=== PATIENT | female | born 1975 | race Asian ===

== ENCOUNTER 2018-07-13 13:15 | Outpatient (REF) | payer BC, SELFPAY ==
--- NOTE | 2018-07-13 11:30 | PAPFT_PTH ---
PATIENT: Liz Lainer LOC: [facility] U#:[id number] AGE/SX: 42/F ROOM: RE07/13/[address]: ADALBERTO Dwyer : 1975 BED: DIS: 07/13/2018 SPEC #: [id number] RECD: 07/13/18 18:00 STATUS: ZOË REQ #: [id number] ALLY: 07/13/18 11:[address]: Tanisha Smalls DEPT: [facility] Cytology RECD BY: Carole Tinoco ENTERED: 07/13/18 18:00 SP TYPE: PAPFT OTHR DR: Carin Reyes Tissues: 1 - CX/ENDOCX FOR PAP SMEARS Procedures: PAP THIN PREP/UVM Screening Comments: [id number] (CREDIT HPV PER ZEB POLLARD @ [facility]) (RESUBMITTED AT NO CHARGE - SEE [id number])
== END 2018-07-13 13:35 ==
LOC: LBN 13:15
PROVIDERS: PCP Nurse Practitioner Family; Visit Provider Nurse Practitioner Family
DX: Z12.4 Encounter for screening for malignant neoplasm of cervix (principal); Z11.51 Encounter for screening for human papillomavirus (HPV)
CPT/HCPCS: 88142; 87624

== ENCOUNTER 2018-07-27 14:28 | Outpatient (REF) | payer BC, SELFPAY ==
--- NOTE | 2018-07-27 13:00 | PAPFT_PTH ---
PATIENT: Liz Lanier LOC: [facility] U#:[id number] AGE/SX: 42/F ROOM: RE07/27/[address]: ADALBERTO Dwyer : 1975 BED: DIS: 07/27/2018 SPEC #: [id number] RECD: 07/27/18 18:07 STATUS: ZOË JUAREZ #: [id number] ALLY: 07/27/18 13:[address]: Tanisha Smalls DEPT: [facility] Cytology RECD BY: Carole Tinoco ENTERED: 07/27/18 18:08 SP TYPE: PAPFT OTHR DR: Carin Reyes Tissues: 1 - CX/ENDOCX FOR PAP SMEARS Procedures: HPV DNA PROBE Comments: (HPV ONLY!) (SEE [id number] REPORT - [facility]#: [id number]) (HPV TESTING DONE AT NO CHARGE PER ZEB POLLARD @ [facility])
== END 2018-07-27 14:48 ==
LOC: LBN 14:28
PROVIDERS: PCP Nurse Practitioner Family; Visit Provider Nurse Practitioner Family
DX: Z12.4 Encounter for screening for malignant neoplasm of cervix (principal); Z11.51 Encounter for screening for human papillomavirus (HPV)
CPT/HCPCS: 88142; 87624

== ENCOUNTER 2018-07-29 01:06 | Outpatient (CLI) | payer BC, SELFPAY ==
--- NOTE | 2018-07-29 12:00 | DI.MAMMO_ITS ---
SYMPTOMS/DIAGNOSIS: SCREENING, Z12.31 BILATERAL SCREENING MAMMOGRAM: Comparison is made with 2015. The breasts are composed of heterogeneously dense fibroglandular tissue, breast density category C. No suspicious masses or suspicious microcalcifications are seen. There has been no significant change. IMPRESSION: Category 1, negative mammogram. Routine screening is recommended. [facility] ASSESSMENT OF FINDINGS: Negative. Category 1. Patient will receive a letter notifying them of these results. Bi-RADS category C. The breasts are heterogeneously dense, which may obscure small masses.
== END 2018-07-29 01:26 ==
PROVIDERS: PCP Nurse Practitioner Family; Visit Provider Nurse Practitioner Family
DX: Z12.31 Encounter for screening mammogram for malignant neoplasm of breast (principal)
CPT/HCPCS: 77063; 77067

== ENCOUNTER 2019-02-12 02:26 | Inpatient (IN) | payer BC, SELFPAY ==
[2019-02-12] VITALS (14 sets, daily range): BP systolic 92–153; BP diastolic 56–82; PULSE 65–102; RESP 16–22; TEMP 36.5–37.1; O2SAT 96–100
--- NOTE | 2019-02-12 02:35 | W.ED.GENAD ---
Discharge Plan Disposition Patient Disposition: [facility] INPATIENT Condition: Stable Discharge Details Chief Complaint: Abd Prob Clinical Impression: Acute cholecystitis Primary Care Provider: Carin Reyes ED Provider: Valdez Jara Home Meds and New Rx's Prescriptions: No Action ktlfzzplgper-Qr-yzrr-minerals [Women's One Daily] 1 EACH tablet 1 ea PO PRN RF: 0 cholecalciferol (vitamin D3) 5,000 UNIT tablet 5,000 unit PO PRN RF: 0 omega-3 fatty acids [Fish Oil] 500 MG capsule 500 mg PO RF: 0 Medical Decision Making 43 yo female who denies chronic medical problems or prior surgeries, denies smoking, drug use or alcohol use, comes in with acute onset epigastric/ruq pain starting around 1130pm last night. She states she has had intermittent abdominal pain for years, can't think of anything that makes it better or worse. She states this pain woke her up from sleep. She has pain with palpation to the ruq and epigastric, no lower abdominal pain. Given concern for cholecystitis, pancreatitis among other pathology will obtain lab work and ct to further evaluate labs show wbc of 12, otherwise no acute findings. CT shows likely cholecystitis. Will consult with general surgery. Pt still has pain with palpation but much improved with meds. Dr. Meng from general surgery agrees with admission and will place orders Differential Diagnosis pancreatitis, cholecystitis, pneumoperitoneum Imaging Data Radiologic Study: Attestation: I personally reviewed and interpreted this imaging study as follows: Imaging: CT Scan Radiologist's impression: IMPRESSION: Gallstones with pericholecystic stranding/fluid in possible mild gallbladder wall thickening, suspicious for acute cholecystitis. Lab Data Lab results reviewed: Yes I reviewed the patient's lab results. ECG Data Attestation: I personally reviewed and interpreted this ECG (s) as follows: Prior ECG tracings: not available for review Interpretation: sinus rhythm, rate of 87, pr 168, qtc 457, no acute st t wave ischemic changes HPI General Mode of arrival: ambulatory. Date/Time Provider Initiated Documentation: 02/12/19 02:30. Limitations to Documentation: no limitations. Information obtained by: patient. History of Present Illness 43 year old F presents to the emergency department with the chief complaint of abdominal pain, described as severe, Quality is described as stabbing and aching, and is localized to the abdomen. Patient reports no radiation. Patient started experiencing this hour(s) (3) and it has been constant. No relieving factors improve symptom(s), No exacerbating factors reported . Patient did receive the following treatments prior to arrival, none Related Data Home Medications Medication Instructions Recorded Confirmed cholecalciferol (vitamin D3) 5,000 unit PO PRN 03/07/13 07/27/18 svmldifllxaf-Iz-bzcf-minerals 1 ea PO PRN 03/07/13 07/27/18 [Women's One Daily] omega-3 fatty acids [Fish Oil] 500 mg PO 04/08/16 07/27/18 Allergies Allergy/AdvReac Type Severity Reaction Status Date / Time No Known Allergies Allergy Verified 02/12/19 03:07 Review of Systems Review of Systems All systems reviewed & are unremarkable except as noted in HPI and below Constitutional Denies chills, Denies fever(s) and Denies weakness ENT Denies change in voice Cardiovascular Denies chest pain and Denies dyspnea Respiratory Denies cough and Denies dyspnea Gastrointestinal Denies abdominal pain, Denies nausea and Denies vomiting Integumentary/Breasts Denies rash Neurologic Denies weakness Endocrine Denies heat intolerance PFS Surgical History Biopsy of breast Social History Smoking/Tobacco Use Status: Never Alcohol Intake: current Alcohol Intake frequency: other Drug use: Never Substance use type: does not use Seatbelt use: always Do you feel safe at home: Yes Do you feel safe in your relationship?: Yes Female Reproductive History Menstrual control method: condoms History History 3 Para Hx # Term Pregnancies 2 Multiple births Hx # Pregnancies Ectopic pregnancies AB induced Hx Number of Living Children AB spontaneous Exam Const General: no acute distress Orientation: alert HENMT Head: normal to inspection Ears: external ears normal General nose exam: external nose normal Mouth: moist mucous membranes Eyes General: appearance normal, both eyes and all related structures Neck Neck: normal visual inspection Resp Effort & Inspection: normal respiratory effort and able to speak in complete sentences Cardio Rate: regular rate GI Palpation: soft Skin General skin exam: no rashes or lesions noted Neuro General: alert and oriented x3 Extrem General: normal to inspection Psych Mental Status: mental status grossly normal
[2019-02-12] MEDS: Normal Saline Flush 10 ML SYR IVP (02:40)
[2019-02-12] MEDS: Normal Saline 1,000 ML 1000 ML IV (02:40)
[2019-02-12] MEDS: Ondansetron 4 MG/2 ML VIAL IVP (02:42)
[2019-02-12] MEDS: Ketorolac 15 MG/ML VIAL IVP (02:45)
[2019-02-12 03:00] LABS: Abs Immature Grans 0.03 k/cumm (0.0-0.09); Absolute Basophil Count 0.04 k/cumm (0.0-0.2); Absolute Eosinophil Count 0.17 k/cumm (0.0-0.7); Absolute Monocyte Count 0.65 k/cumm (0.11-0.7); Basophils % 0.3; Eosinophils % 1.4; HCT 38.6 % (36.0-46.0); HGB 12.7 g/dL (12.0-15.5); Immature Grans % 0.2; Lymphocytes % 19.7; Mean Corp. HGB Concentration 32.9 g/dL (32.0-36.0); Mean Corpuscular Volume 94.1 fL (80-95); Mean Platelet Volume 11.6 fL (8.0-11.0); Monocytes % 5.3; Neutrophils % 73.1; Platelet Count 218 x1000/uL (130-400); RBC Distribution Width 12.1 % (11.7-14.6); White Blood Cell Count 12.17 k/cumm (4.4-10.8)
[2019-02-12] MEDS: Omnipaque 350 MG/ML 100 ML BTL IJ (03:10)
[2019-02-12 03:15] LABS: ALT 11 U/L (12-78); AST 10 U/L (15-37); Albumin 3.9 g/dL (3.4-5.0); Alkaline Phosphatase 34 U/L (46-116); Anion Gap 10.5 mmol/L (3-11); BUN 18 mg/dL (7-18); Bilirubin, Total 0.5 mg/dL (0.2-1.0); CO2 25.5 mmol/L (21.0-32.0); CREATININE 0.69 mg/dL (0.55-1.02); Calcium 8.8 mg/dL (8.5-10.1); Chloride 101 mmol/L (98-107); Glucose 176 mg/dL (70-100); Lipase 163 U/L (73-393); Magnesium 1.6 mg/dL (1.8-2.4); Potassium 3.4 mmol/L (3.5-5.1); Sodium 137 mmol/L (136-145); Total Protein 8.3 g/dL (6.4-8.2); Troponin I < 0.02 ng/mL (0.00-0.06)
--- NOTE | 2019-02-12 03:15 | DI.CT_ITS ---
SYMPTOM/DIAGNOSIS: UPPER ABD PAIN ABDOMEN AND PELVIC CT: No priors. CT scan of the abdomen and pelvis was performed following the uneventful administration of intravenous contrast material. Mild dependent atelectatic changes are seen in the lung bases. The liver is normal in size. No suspicious hepatic masses are seen. The portal and superior mesenteric veins are patent. There are stones seen within the gallbladder. There is a question of mild gallbladder wall thickening and pericholecystic fluid present. The findings raise the question of acute cholecystitis. No biliary ductal dilatation is seen. The pancreas, spleen and adrenal glands are unremarkable. The kidneys show normal and symmetric enhancement. No solid renal mass or obstruction is identified. The urinary bladder is intact. The reproductive organs are unremarkable. The bowel shows no evidence of obstruction or inflammation. There is a normal appendix present. There is a trace amount of free fluid in the pelvis in the cul-de-sac. This may be physiologic. No significant abdominal or pelvic adenopathy or pneumoperitoneum is present. The bones appear intact. IMPRESSION: Cholelithiasis, pericholecystic stranding and possible gallbladder wall thickening. The findings raise the question of acute cholecystitis. Sonographic follow up should be considered.
[2019-02-12 03:39] LABS: Prothrombin Time 10.4 sec (9.3-11.0)
[2019-02-12 03:50] LABS: PTT Activated 24.3 sec (21.0-31.4)
--- NOTE | 2019-02-12 04:16 | DI.VRAD_ITS ---
EXAM: CT Abdomen and Pelvis With Contrast EXAM DATE/TIME: 02/12/2019 3:11 AM CLINICAL HISTORY: 43 years old, female; Abdominal pain; Localized; Patient HX: HX gallstones, upper abd pain x24 hours TECHNIQUE: Imaging protocol: Axial computed tomography images of the abdomen and pelvis with intravenous contrast. Coronal and sagittal reformatted images were created and reviewed. Radiation optimization: All CT scans at this facility use at least one of these dose optimization techniques: automated exposure control; mA and/or kV adjustment per patient size (includes targeted exams where dose is matched to clinical indication); or iterative reconstruction. Contrast material: [id number]; Contrast volume: 70 ml; Contrast route: IV; COMPARISON: No relevant prior studies available. FINDINGS: ABDOMEN: Liver: Normal. No mass. Gallbladder and bile ducts: Gallstones with pericholecystic stranding/fluid in possible mild gallbladder wall thickening, suspicious for acute cholecystitis. Pancreas: Normal. No ductal dilation. Spleen: Normal. No splenomegaly. Adrenals: Normal. No mass. Kidneys and ureters: Normal. No hydronephrosis. Stomach and bowel: Colonic diverticula. Appendix: No evidence of appendicitis. PELVIS: Bladder: Unremarkable as visualized. Reproductive: Unremarkable as visualized. ABDOMEN and PELVIS: Intraperitoneal space: Normal. No free air. No significant fluid collection. Bones/joints: No acute fracture. No dislocation. Soft tissues: Unremarkable. Vasculature: Normal. No abdominal aortic aneurysm. Lymph nodes: Normal. No enlarged lymph nodes. IMPRESSION: Gallstones with pericholecystic stranding/fluid in possible mild gallbladder wall thickening, suspicious for acute cholecystitis. Dictated and Authenticated by: Valdez Quan MD. Ordering:CRISPIN Kellogg MD
--- NOTE | 2019-02-12 04:18 | NUR.NOTE ---
Nursing Note: patient resting, remains pain free.
--- NOTE | 2019-02-12 04:44 | W.PM.HP.N ---
Date of service: 02/12/19 Time of Service: 04:44 Assessment and Plan (1) Acute gallstone pancreatitis: Current visit: Yes Status: Acute pt prob passed GS last pm. very mild pancreatitis. also has low grade infection/cholecystitis. Pt really wants to eat and go home. cont on IV abx try cl liq today adn see how pt progresses. repeat labs in am: if pt feeling good and labs are improving, and she can eat w/out pain, than we will d/c on abx and I will see in office on and schedule for outpt sx. low fat/ no pork diet as outpt. If she is not improving- than Sx in am cont supportive care and close nursing obs. (2) Acute cholecystitis due to biliary calculus: Current visit: Yes Status: Acute as above (3) Acute cholecystitis with chronic cholecystitis: Current visit: Yes Status: Acute History of Present Illness Consults Consult date: 02/12/19 Requesting physician: Sunny Muse Narrative: pt came into ED last night c/o chest pain . She points to mid sternum where she said the pain was (currently has no pain). EKG and trop were neg. See results of CT scan. Pt does have a Hx of GS. They started when she was in third trimester of her last . Then she would get pain in her chest. She has not really had problems with the gallstones for the last 20 years. If she occasionally get pain she will take a Tylenol and they go away. Her last meal was pork spare ribs. Last night she started getting chest pain. It would not go away. And it became quite severe. And she came into the emergency department. She was nauseated but no vomiting. She did not have any changes in bowel/does not have diarrhea. Today she is feeling better. She has no pain. She has no nausea. She is hungry and she would like to eat. today I discussed with the patient and her the etiology and natural progression of gallstone disease. She does have acute cholecystitis- Though it is mild. She most likely passed a gallstone last night as her pancreatic enzymes are just mildly elevated. She actually looks quite good. She feels much better today. Her white count is slightly elevated from last p.m. despite hydration. She really wants to eat and go home today. no headaches. No CP or SOB. no productive cough. no dysuria. no leg pain or swelling. from ED: 43 yo female who denies chronic medical problems or prior surgeries, denies smoking, drug use or alcohol use, comes in with acute onset epigastric/ruq pain starting around 1130pm last night. She states she has had intermittent abdominal pain for years, can't think of anything that makes it better or worse. She states this pain woke her up from sleep. She has pain with palpation to the ruq and epigastric, no lower abdominal pain. Given concern for cholecystitis, pancreatitis among other pathology will obtain lab work and ct to further evaluate Review of Systems Review of Systems All systems reviewed & are unremarkable except as noted in HPI and below Constitutional Reports as per HPI, Reports system reviewed and no additional complaints, except as docu, Denies anorexia, Denies chills, Denies difficulty sleeping, Denies fatigue, Denies headache(s), Denies lethargy, Denies malaise, Denies poor appetite, Denies weakness, Denies weight gain and Denies weight loss Eyes Reports as per HPI, Reports system reviewed and no additional complaints, except as docu and Denies change in vision ENT Reports system reviewed and no additional complaints, except as docu, Reports as per HPI, Denies change in voice, Denies dental pain, Denies dysphagia, Denies dizziness, Denies facial pain, Denies headache(s) and Denies odynophagia Cardiovascular Reports as per HPI, Reports system reviewed and no additional complaints, except as docu, Denies chest pain, Denies chest pain with activity, Denies syncope, Denies leg edema and Denies dyspnea Respiratory Reports as per HPI, Reports system reviewed and no additional complaints, except as docu, Denies chest congestion, Denies cough, Denies pain with cough and Denies dyspnea Gastrointestinal Reports as per HPI, Reports system reviewed and no additional complaints, except as docu, Reports abdominal pain, Denies belching, Denies melena, Reports bloating, Denies hematochezia, Denies change in bowel habits, Denies change in stool character, Denies coffee ground emesis, Denies constipation, Denies cramping, Denies dysphagia, Denies early satiety, Reports heartburn, Denies diarrhea, Denies loose stools, Reports nausea, Denies odynophagia and Denies vomiting Comments: pt has no pain now and no nausea and would like to eat. Musculoskeletal Reports system reviewed and no additional complaints, except as docu, Reports as per HPI, Denies abnormal gait, Denies arthralgias and Denies muscle weakness Integumentary/Breasts Reports system reviewed and no additional complaints, except as docu, Reports as per HPI, Denies changing lesions, Denies new lesions and Denies jaundice Neurologic Reports system reviewed and no additional complaints, except as docu, Reports as per HPI, Denies abnormal speech, Denies abnormal gait, Denies dizziness, Denies syncope, Denies headache(s), Denies memory loss and Denies weakness Psychiatric Reports system reviewed and no additional complaints, except as docu, Reports as per HPI, Denies change in appetite and Denies memory loss Endocrine Denies fatigue, Denies polydipsia and Denies polyuria Hematologic/Lymphatic Reports system reviewed and no additional complaints, except as docu, Denies easy bleeding and Denies easy bruising Allergic/Immunologic Denies system reviewed and no additional complaints, except as docu, Reports as per HPI and Denies urticaria PFSH Medical History Acute cholecystitis with chronic cholecystitis (Acute) Acute cholecystitis due to biliary calculus (Acute) Acute gallstone pancreatitis (Acute) Surgical History Biopsy of breast Social History Smoking/Tobacco Use Status: Never Alcohol Intake: current Alcohol Intake frequency: other Drug use: Never Substance use type: does not use Seatbelt use: always Do you feel safe at home: Yes Do you feel safe in your relationship?: Yes Female Reproductive History Menstrual control method: condoms History History 3 Para Hx # Term Pregnancies 2 Multiple births Hx # Pregnancies Ectopic pregnancies AB induced Hx Number of Living Children AB spontaneous Meds Home Medications Medication Instructions Recorded Confirmed Type btlbskqcnrva-Nl-ccnn-minerals 1 ea PO PRN 03/07/13 07/27/18 History [Women's One Daily] omega-3 fatty acids [Fish Oil] 500 mg PO 04/08/16 07/27/18 History Allergies Allergy/AdvReac Type Severity Reaction Status Date / Time No Known Allergies Allergy Verified 02/12/19 03:07 Exam Const General: cooperative, healthy appearing, comfortable, no acute distress, well developed and well groomed Nutritional Appearance: average body habitus and well nourished Orientation: alert, awake and oriented x3 [facility] Head: normal to inspection, normocephalic and atraumatic Ears: hearing grossly normal bilaterally and external ears normal General nose exam: external nose normal Face and sinus: normal facial exam and sinuses nontender Mouth: oral mucosae normal, lip normal, tongue normal and moist mucous membranes Teeth and gingiva: dentition normal Eyes General: appearance normal, both eyes and all related structures Conjunctivae: conjunctivae normal Sclera: sclerae normal Pupils: PERRL Neck Neck: normal visual inspection and full ROM Chest Chest: normal inspection of the chest Resp Effort & Inspection: normal respiratory effort, able to speak in complete sentences, no cough, no nasal flaring, not tachypneic and no use of accessory muscles Auscultation: clear to auscultation bilaterally, no rales, no rhonchi and no wheezes Cardio Jugular venous pressure: no JVD Rate: regular rate Rhythm: regular rhythm GI Inspection: normal to inspection, no edema and non-distended Palpation: soft, no masses, nontender and No ascites Auscultation: normal bowel sounds Other: pt has no pain at this time. When she was having pain she points to mis chest and says that is wehre it hurt. no pain w/ palpation to RUQ today. She said it did not hurt there or in L side last pm. It did not radiate. no flank pain. Abdomen image: 1. 2. Skin General skin exam: no rashes or lesions noted Trauma: no lacerations or abrasions Neuro General: alert, oriented x3, oriented, gait normal, moves all extremities, no focal motor deficits and CN's II-XI intact bilaterally Cognition: normal cognition Speech: speech normal Gait: normal gait Motor: muscle tone normal throughout Extrem General: normal to inspection, full ROM and no clubbing, cyanosis or edema Psych Appearance: grossly normal and well kempt Mental Status: mental status grossly normal Speech and Movement: speech and movement normal Affect: normal affect Results Labs : 02/12/19 06:53 02/12/19 06:53 Laboratory Results - last 24 hr 02/12/19 02/12/19 02/12/19 02:45 02:45 02:45 WBC 12.17 H RBC 4.10 Hgb 12.7 Hct 38.6 MCV 94.1 MCH 31.0 MCHC 32.9 RDW 12.1 Plt Count 218 MPV 11.6 H Immature Gran % 0.2 Neutrophils % 73.1 Lymphocytes % 19.7 Monocytes % 5.3 Eosinophils % 1.4 Basophils % 0.3 Absolute Neutrophils 8.90 H Absolute Lymphocytes 2.40 Absolute Monocytes 0.65 Absolute Eosinophils 0.17 Absolute Basophils 0.04 PT 10.4 INR 1.0 APTT 24.3 Sodium 137 Potassium 3.4 L Chloride 101 Carbon Dioxide 25.5 Anion Gap 10.5 BUN 18 Creatinine 0.69 Estimated GFR/1.73 m2 >= 60.00 Glucose 176 H Calcium 8.8 Magnesium 1.6 L Total Bilirubin 0.5 AST 10 L ALT 11 L Alkaline Phosphatase 34 L Troponin I < 0.02 Total Protein 8.3 H Albumin 3.9 Lipase 163 Last Vital Signs Temp 37.1 C 02/12/19 03:01 Pulse 102 H 02/12/19 04:15 Resp 20 02/12/19 04:15 BP 105/65 02/12/19 04:15 Pulse Ox 97 02/12/19 04:15
[2019-02-12] MEDS: Pantoprazole 40 MG VIAL IVP (04:55)
[2019-02-12] MEDS: cefTRIAXone 2 GM/50 ML BAG IVPB (05:03)
[2019-02-12] MEDS: Normal Saline 1,000 ML 150 ML IV ×2 (05:08→12:43)
[2019-02-12] MEDS: metroNIDAZOLE 500 MG/100 ML BAG 100 MG IVPB ×3 (06:14→22:35)
[2019-02-12] MEDS: ACETAMINOPHEN 1,000 MG/100 ML BTL 400 MG IVPB ×3 (06:14→22:11)
[2019-02-12 07:45] LABS: Abs Immature Grans 0.02 k/cumm (0.0-0.09); Absolute Basophil Count 0.03 k/cumm (0.0-0.2); Absolute Lymphocyte Count 1.58 k/cumm (1.2-3.4); Basophils % 0.2; Eosinophils % 0.1; HCT 35.3 % (36.0-46.0); HGB 11.4 g/dL (12.0-15.5); Immature Grans % 0.1; Lymphocytes % 11.5; Mean Corp. HGB Concentration 32.3 g/dL (32.0-36.0); Mean Corpuscular Hemoglobin 30.6 pg (27.0-33.0); Mean Corpuscular Volume 94.6 fL (80-95); Mean Platelet Volume 11.7 fL (8.0-11.0); Monocytes % 3.6; Neutrophils % 84.5; Platelet Count 203 x1000/uL (130-400); RBC 3.73 m/cumm (4.00-5.20); RBC Distribution Width 12.2 % (11.7-14.6); White Blood Cell Count 13.78 k/cumm (4.4-10.8)
[2019-02-12 07:50] LABS: Absolute Eosinophil Count 0.01 k/cumm (0.0-0.7); Absolute Neutrophil Count 11.64 k/cumm (1.2-6.7)
[2019-02-12 08:03] LABS: ALT 8 U/L (12-78); AST 15 U/L (15-37); Alkaline Phosphatase 30 U/L (46-116); Amylase 124 U/L (25-115); Anion Gap 9.2 mmol/L (3-11); BUN 13 mg/dL (7-18); Bilirubin, Total 0.4 mg/dL (0.2-1.0); CO2 23.8 mmol/L (21.0-32.0); CREATININE 0.51 mg/dL (0.55-1.02); Calcium 7.8 mg/dL (8.5-10.1); Chloride 107 mmol/L (98-107); Glucose 118 mg/dL (70-100); Lipase 152 U/L (73-393); Potassium 3.7 mmol/L (3.5-5.1); Sodium 140 mmol/L (136-145); Total Protein 6.8 g/dL (6.4-8.2)
--- NOTE | 2019-02-12 08:05 | PDOC.CMIN ---
Care Management Initial Assess REASON FOR HOSPITALIZATION:: Acute Charlee PAST MEDICAL HISTORY/PAST SURGICAL HISTORY:: Breast Biopsy PREVIOUS FUNCTIONAL STATUS/SOCIAL/FAMILY SUPPORTS:: Liz resides in [place], [place] with her Tony and their two children. She is independent at baseline in the community. CURRENT FUNCTIONAL STATUS:: Liz would like to go home and eat per MD. If tolerated, Liz will have her diet advanced and return home for planned outpatient follow up and intervention. Has patient been provided with information about the portal?: Yes Did the patient sign up for the portal?: No CODE STATUS:: Full Code INSURANCE COVERAGE / FINANCIAL ISSUES:: BC/BS Other. [place] CURRENT HOME/COMMUNITY SERVICES/EQUIPMENT:: No current services or equipment PRIMARY CARE PHYSICIAN:: [facility] POTENTIAL DISCHARGE NEEDS:: PCP assignment. PATIENT/FAMILY EDUCATION NEEDS:: Review of discharge instructions, discuss Ask Me Three. ANTICIPATED BARRIERS TO DISCHARGE:: None identified. TRANSPORTATION:: Via private vehicle with her significant other. PLAN:: Liz will return home when ready per MD. She will be assigned a new PCP for follow up and transport via private vehicle with her , Tony.
--- NOTE | 2019-02-12 10:45 | PHARADMIT ---
Admission Pharmacy Clinical Review ACUTE SHAYLEE Code Status Full Code Current Weight Wgt- 52.1 kg Renally Cleared and Narrow Therapeutic Index Meds CrCl~ 70.13 mL/min Meds-OK QTc Value / Action Taken QTc-457 na BP Control, Fever BP-92/56 Tmax- 36.7 Electrolytes reviewed Na- 140 K+3.7 Mag-1.6 DVT Prophylaxis SCDs Opiate Usage / Scheduled Bowel Regimen Ordered Yes No Plt/SCr for Heparin / Enoxaparin Plts- 203 SCr-0.51 INR for Warfarin inr-1.0 H/H stable, WBC/Bands H&H- 11.4/35.3 WBC- 13.78 Antibiotic appropriateness Rocephin, Flagyl Cultures and Sensitivities none Surgical ABX d/c within 24 hr NA DM control / Insulin Dosing BG- 118 Heart Failure (Check EF%) (ADRIEL's, B-Block, Diuretics) none IV to PO Switch No Home Meds Reviewed Yes Home Meds Not Ordered M-Vites, [place]-3 Comments
[2019-02-12] MEDS: Normal Saline 1,000 ML 100 ML IV (22:09)
[2019-02-13] MEDS: Normal Saline 1,000 ML 100 ML IV (04:00)
[2019-02-13] MEDS: Normal Saline Flush 10 ML SYR IVP (05:23)
[2019-02-13] MEDS: Pantoprazole 40 MG VIAL IVP (05:23)
[2019-02-13] MEDS: cefTRIAXone 2 GM/50 ML BAG IVPB (05:23)
[2019-02-13 06:00] VITALS: BP 117/72; PULSE 86; RESP 16; TEMP 37; O2SAT 98
[2019-02-13] MEDS: metroNIDAZOLE 500 MG/100 ML BAG 100 MG IVPB (07:04)
[2019-02-13 07:05] VITALS: BP 111/71; PULSE 69; RESP 16; TEMP 36.4; O2SAT 97
[2019-02-13 07:06] LABS: Abs Immature Grans 0.01 k/cumm (0.0-0.09); Absolute Basophil Count 0.03 k/cumm (0.0-0.2); Absolute Eosinophil Count 0.17 k/cumm (0.0-0.7); Absolute Lymphocyte Count 1.89 k/cumm (1.2-3.4); Absolute Monocyte Count 0.39 k/cumm (0.11-0.7); Absolute Neutrophil Count 3.59 k/cumm (1.2-6.7); Basophils % 0.5; Eosinophils % 2.8; HCT 35.2 % (36.0-46.0); HGB 11.1 g/dL (12.0-15.5); Immature Grans % 0.2; Lymphocytes % 31.1; Mean Corp. HGB Concentration 31.5 g/dL (32.0-36.0); Mean Corpuscular Hemoglobin 30.2 pg (27.0-33.0); Mean Corpuscular Volume 95.7 fL (80-95); Mean Platelet Volume 11.5 fL (8.0-11.0); Monocytes % 6.4; Platelet Count 191 x1000/uL (130-400); RBC 3.68 m/cumm (4.00-5.20); RBC Distribution Width 12.2 % (11.7-14.6); White Blood Cell Count 6.08 k/cumm (4.4-10.8)
[2019-02-13 07:27] LABS: ALT 13 U/L (12-78); AST 20 U/L (15-37); Albumin 2.9 g/dL (3.4-5.0); Calcium 7.6 mg/dL (8.5-10.1); Lipase 122 U/L (73-393); Total Protein 6.7 g/dL (6.4-8.2)
[2019-02-13 08:09] LABS: Alkaline Phosphatase 29 U/L (46-116); Amylase 65 U/L (25-115); Anion Gap 10.9 mmol/L (3-11); Bilirubin, Total 0.7 mg/dL (0.2-1.0); CO2 23.1 mmol/L (21.0-32.0); CREATININE 0.57 mg/dL (0.55-1.02); Chloride 105 mmol/L (98-107); Glucose 104 mg/dL (70-100); Sodium 139 mmol/L (136-145)
[2019-02-13 08:21] LABS: BUN 5 mg/dL (7-18); Potassium 2.8 mmol/L (3.5-5.1)
[2019-02-13] MEDS: POTASSIUM CHLORIDE 10 MEQ/100 ML BAG 100 MEQ IVPB (09:43)
--- NOTE | 2019-02-13 11:24 | W.PM.PROGNOT ---
Date of Service Date of service: 02/13/19 Time of Service: 11:24 Assessment and Plan (1) Acute cholecystitis with chronic cholecystitis: Current visit: Yes Status: Acute pt had no pain today. tolerating po's. no fever/WBC/labs have normalized. pt wants to go home will let her eat - and if no n/v or abdom pain today plan dc low fat diet f/u in clinic tomorrow and will schedule lap xander (2) Low serum potassium: Current visit: Yes Status: Acute pt able to eat and tolerate po's Subjective Interval history since last seen: Pt is doing well. no headaches. No CP or SOB. no productive cough. no dysuria. no leg pain or swelling. pt had no problems w/ cl liq yes. No n/v. no abdom pain. pt would like to go home Exam Const General: cooperative, healthy appearing, comfortable, no acute distress, well developed and well groomed Nutritional Appearance: average body habitus and well nourished Orientation: alert, awake and oriented x3 HENMT Head: normal to inspection, normocephalic and atraumatic Ears: hearing grossly normal bilaterally and external ears normal General nose exam: external nose normal Face and sinus: normal facial exam and sinuses nontender Mouth: oral mucosae normal, lip normal, tongue normal and moist mucous membranes Teeth and gingiva: dentition normal Eyes General: appearance normal, both eyes and all related structures Conjunctivae: conjunctivae normal Sclera: sclerae normal Pupils: PERRL Neck Neck: normal visual inspection and full ROM Chest Chest: normal inspection of the chest Resp Effort & Inspection: normal respiratory effort, able to speak in complete sentences, no cough, no nasal flaring, not tachypneic and no use of accessory muscles Auscultation: clear to auscultation bilaterally, no rales, no rhonchi and no wheezes Cardio Jugular venous pressure: no JVD Rate: regular rate Rhythm: regular rhythm GI Inspection: normal to inspection, no edema and non-distended Palpation: soft, no masses, nontender and No ascites Auscultation: normal bowel sounds Other: soft and non tender Skin General skin exam: no rashes or lesions noted Trauma: no lacerations or abrasions Neuro General: alert, oriented x3, oriented, gait normal, moves all extremities, no focal motor deficits and CN's II-XI intact bilaterally Cognition: normal cognition Speech: speech normal Gait: normal gait Motor: muscle tone normal throughout Extrem General: normal to inspection, full ROM and no clubbing, cyanosis or edema Psych Appearance: grossly normal and well kempt Mental Status: mental status grossly normal Speech and Movement: speech and movement normal Affect: normal affect Objective Objective Clinical Data: Abnormal lab results 02/13/19 02/13/19 Range/Units 06:30 06:30 RBC 3.68 L (4.00-5.20) m/cumm Hgb 11.1 L (12.0-15.5) g/dL Hct 35.2 L (36.0-46.0) % MCV 95.7 H (80-95) fL MCHC 31.5 L (32.0-36.0) g/dL MPV 11.5 H (8.0-11.0) fL Potassium 2.8 L* (3.5-5.1) mmol/L BUN 5 L (7-18) mg/dL Glucose 104 H (70-100) mg/dL Calcium 7.6 L (8.5-10.1) mg/dL Alkaline Phosphatase 29 L (46-116) U/L Albumin 2.9 L (3.4-5.0) g/dL Vital Signs Temperature 36.4 C L 02/13/19 07:05 Temperature Source Tympanic 02/13/19 07:05 Pulse 69 02/13/19 07:05 Pulse Rhythm Regular 02/13/19 00:20 Respiratory Rate 16 02/13/19 07:05 Respiratory Effort Non-Labored 02/13/19 00:20 Respiratory Depth Normal 02/13/19 00:20 Respiratory Pattern Normal 02/13/19 00:20 Blood Pressure 111/71 02/13/19 07:05 Blood Pressure Position Supine 02/12/19 03:01 Pulse Oximetry 97 02/13/19 07:05 Oxygen Delivery Method Room Air 02/13/19 07:05 Oxygen Flow Rate 0 02/13/19 07:05 Pain Level 0 02/13/19 07:05 Comment 02/12/19 12:05 Intake & Output 02/12/19 02/12/19 02/13/19 11:59 23:59 11:59 Intake Total 1307.5 / 3287.5 1980 / 3287.5 941.667 / 941.667 Output Total 1400 / 2550 1150 / 2550 1350 / 1350 Balance -92.5 / 737.5 830 / 737.5 -408.333 / -408.333 Weight 52.1 kg Intake: IV 1307.5 / 2807.5 1500 / 2807.5 941.667 / 941.667 Oral 480 / 480 Output: Urine 1400 / 2550 1150 / 2550 1350 / 1350 Other: Urine Color Yellow Straw Yellow Urine Appearance Clear Clear Clear Urine Odor Normal Normal Normal Voiding Methods Toilet Toilet Toilet # Voids 1 Laboratory Results WBC 6.08 k/cumm (4.4-10.8) D 02/13/19 06:30 RBC 3.68 m/cumm (4.00-5.20) L 02/13/19 06:30 Hgb 11.1 g/dL (12.0-15.5) L 02/13/19 06:30 Hct 35.2 % (36.0-46.0) L 02/13/19 06:30 MCV 95.7 fL (80-95) H 02/13/19 06:30 MCH 30.2 pg (27.0-33.0) 02/13/19 06:30 MCHC 31.5 g/dL (32.0-36.0) L 02/13/19 06:30 RDW 12.2 % (11.7-14.6) 02/13/19 06:30 Plt Count 191 x1000/uL (130-400) 02/13/19 06:30 MPV 11.5 fL (8.0-11.0) H 02/13/19 06:30 Immature Gran % 0.2 02/13/19 06:30 Neutrophils % 59.0 02/13/19 06:30 Lymphocytes % 31.1 02/13/19 06:30 Monocytes % 6.4 02/13/19 06:30 Eosinophils % 2.8 02/13/19 06:30 Basophils % 0.5 02/13/19 06:30 Absolute Neutrophils 3.59 k/cumm (1.2-6.7) 02/13/19 06:30 Absolute Lymphocytes 1.89 k/cumm (1.2-3.4) 02/13/19 06:30 Absolute Monocytes 0.39 k/cumm (0.11-0.7) 02/13/19 06:30 Absolute Eosinophils 0.17 k/cumm (0.0-0.7) 02/13/19 06:30 Absolute Basophils 0.03 k/cumm (0.0-0.2) 02/13/19 06:30 PT 10.4 sec (9.3-11.0) 02/12/19 02:45 INR 1.0 (0.9-1.1) 02/12/19 02:45 APTT 24.3 sec (21.0-31.4) 02/12/19 02:45 Sodium 139 mmol/L (136-145) 02/13/19 06:30 Potassium 2.8 mmol/L (3.5-5.1) L* 02/13/19 06:30 Chloride 105 mmol/L (98-107) 02/13/19 06:30 Carbon Dioxide 23.1 mmol/L (21.0-32.0) 02/13/19 06:30 Anion Gap 10.9 mmol/L (3-11) 02/13/19 06:30 BUN 5 mg/dL (7-18) L 02/13/19 06:30 Creatinine 0.57 mg/dL (0.55-1.02) 02/13/19 06:30 Estimated GFR/1.73 m2 >= 60.00 (mL/min/1.73m2) 02/13/19 06:30 Glucose 104 mg/dL (70-100) H 02/13/19 06:30 Calcium 7.6 mg/dL (8.5-10.1) L 02/13/19 06:30 Magnesium 1.6 mg/dL (1.8-2.4) L 02/12/19 02:45 Total Bilirubin 0.7 mg/dL (0.2-1.0) 02/13/19 06:30 AST 20 U/L (15-37) 02/13/19 06:30 ALT 13 U/L (12-78) 02/13/19 06:30 Alkaline Phosphatase 29 U/L (46-116) L 02/13/19 06:30 Troponin I < 0.02 ng/mL (0.00-0.06) 02/12/19 02:45 Total Protein 6.7 g/dL (6.4-8.2) 02/13/19 06:30 Albumin 2.9 g/dL (3.4-5.0) L 02/13/19 06:30 Amylase 65 U/L (25-115) 02/13/19 06:30 Lipase 122 U/L (73-393) 02/13/19 06:30
--- NOTE | 2019-02-13 11:31 | PDOC.CMDIS ---
- If Service Date Differs Date of service: 02/13/19 Time of Service: 11:31 LACE Index Scoring Tool - Questions: Length of Stay (in days): 2 Acuity (Admit via E.D.?): Yes E.D. Visits: 1 - Answers: Total Score: 6 Risk of Readmission: Low Risk Care Management Discharge Reason for Hospitalization: Acute Charlee Discharge Plan: Liz will be discharged home today and follow up with surgical provider as directed. No additions services at time of discharge her son Vijay will transport her home at time of discharge. Patient/Family Education Needs: Discharge education, limitations and follow up plan of care.
--- NOTE | 2019-02-13 14:52 | W.PM.DS.N ---
Date of service: 02/13/19 Time of Service: 15:24 DS: Diagnosis Discharge Diagnosis (1) Acute cholecystitis with chronic cholecystitis: Status: Acute (2) Low serum potassium: Status: Acute Discharge Plan Disposition Patient Disposition: HOME Condition: Stable Discharge Details Reason For Visit: ACUTE SHAYELE Admit Date/Time: 02/12/19 04:34 Admit Provider: Mya Lares Attending Provider: Mya Lares Primary Care Provider: Lola,[facility] Course Hospital Course: pt came into ED c/o chest pain. THis was ruled-out to be cardiac. She was found to have GS pancreatitis/passed a gallstones. She was admitted for IV abx, pain control. After 12 hrs. She was doing well. no pain and tolerating cl liq. She would like to wait and do GB as outpt. She was no fever/wbc. she is tolerating a low fat diet w/ no abdominal pain. Home Meds and New Rx's Prescriptions: Continued Women's One Daily 1 EACH tablet 1 ea PO PRN RF: 0 Discontinued Fish Oil 500 MG capsule 500 mg PO RF: 0 Discharge Instructions Additional Instructions: -LOW FAT diet . no pork. -F/u w/ Dr. lares in clinic tomorrow at 10am Stand Alone Forms: Nursing Discharge Form Activity:: Activity as Tolerated Equipment/Supplies:: No Equipment Needed Diet:: low fat Discharge Orders Discharge Orders: Discharge Order (Routine); Ordered 02/13/19 Ordered By: Mya Lares Discharge Data Discharge Date/Time-TO BE ENTERED AT DEPARTURE: 02/13/19 15:20 Exam Const General: cooperative, healthy appearing, comfortable, no acute distress, well developed and well groomed Nutritional Appearance: average body habitus and well nourished Orientation: alert, awake and oriented x3 HENMT Head: normal to inspection, normocephalic and atraumatic Ears: hearing grossly normal bilaterally and external ears normal General nose exam: external nose normal Face and sinus: normal facial exam and sinuses nontender Mouth: oral mucosae normal, lip normal, tongue normal and moist mucous membranes Teeth and gingiva: dentition normal Eyes General: appearance normal, both eyes and all related structures Conjunctivae: conjunctivae normal Sclera: sclerae normal Pupils: PERRL Neck Neck: normal visual inspection and full ROM Chest Chest: normal inspection of the chest Resp Effort & Inspection: normal respiratory effort, able to speak in complete sentences, no cough, no nasal flaring, not tachypneic and no use of accessory muscles Auscultation: clear to auscultation bilaterally, no rales, no rhonchi and no wheezes Cardio Jugular venous pressure: no JVD Rate: regular rate Rhythm: regular rhythm GI Inspection: normal to inspection, no edema and non-distended Palpation: soft, no masses, nontender and No ascites Auscultation: normal bowel sounds Other: no pain today. Soft and non tender. When she as having pain it was in her chest. It did not radiate. Skin General skin exam: no rashes or lesions noted Trauma: no lacerations or abrasions Neuro General: alert, oriented x3, oriented, gait normal, moves all extremities, no focal motor deficits and CN's II-XI intact bilaterally Cognition: normal cognition Speech: speech normal Gait: normal gait Motor: muscle tone normal throughout Extrem General: normal to inspection, full ROM and no clubbing, cyanosis or edema Psych Appearance: grossly normal and well kempt Mental Status: mental status grossly normal Speech and Movement: speech and movement normal Affect: normal affect DS: Data Vitals/I&O Vitals and I&O: Vital Signs Temperature 36.4 C L 02/13/19 07:05 Temperature Source Tympanic 02/13/19 07:05 Pulse 69 02/13/19 07:05 Pulse Rhythm Regular 02/13/19 08:05 Respiratory Rate 16 02/13/19 07:05 Respiratory Effort Non-Labored 02/13/19 08:05 Respiratory Depth Normal 02/13/19 08:05 Respiratory Pattern Normal 02/13/19 08:05 Blood Pressure 111/71 02/13/19 07:05 Blood Pressure Position Supine 02/12/19 03:01 Pulse Oximetry 97 02/13/19 07:05 Oxygen Delivery Method Room Air 02/13/19 07:05 Oxygen Flow Rate 0 02/13/19 07:05 Pain Level 0 02/13/19 07:05 Comment 02/12/19 12:05 Intake & Output 02/12/19 02/13/19 02/13/19 23:59 11:59 23:59 Intake Total 1979 / 3287.5 941.667 / 1301.667 360 / 1301.667 Output Total 1150 / 2550 1350 / 1350 Balance 830 / 737.5 -408.333 / -48.333 360 / -48.333 Intake: IV 1500 / 2807.5 941.667 / 941.667 Oral 480 / 480 360 / 360 Output: Urine 1150 / 2550 1350 / 1350 Other: Urine Color Straw Yellow Urine Appearance Clear Clear Urine Odor Normal Normal Voiding Methods Toilet Toilet Labs on day of discharge: Labs from last 24 hours 02/13/19 02/13/19 06:30 06:30 WBC 6.08 D RBC 3.68 L Hgb 11.1 L Hct 35.2 L MCV 95.7 H MCH 30.2 MCHC 31.5 L RDW 12.2 Plt Count 191 MPV 11.5 H Immature Gran % 0.2 Neutrophils % 59.0 Lymphocytes % 31.1 Monocytes % 6.4 Eosinophils % 2.8 Basophils % 0.5 Absolute Neutrophils 3.59 Absolute Lymphocytes 1.89 Absolute Monocytes 0.39 Absolute Eosinophils 0.17 Absolute Basophils 0.03 Sodium 139 Potassium 2.8 L* Chloride 105 Carbon Dioxide 23.1 Anion Gap 10.9 BUN 5 L Creatinine 0.57 Estimated GFR/1.73 m2 >= 60.00 Glucose 104 H Calcium 7.6 L Total Bilirubin 0.7 AST 20 ALT 13 Alkaline Phosphatase 29 L Total Protein 6.7 Albumin 2.9 L Amylase 65 Lipase 122 PFSH Medical History Acute cholecystitis with chronic cholecystitis (Acute) Acute cholecystitis due to biliary calculus (Acute) Acute gallstone pancreatitis (Acute) Surgical History Biopsy of breast Social History Smoking/Tobacco Use Status: Never Alcohol Intake: current Alcohol Intake frequency: other Drug use: Never Substance use type: does not use Seatbelt use: always Do you feel safe at home: Yes Do you feel safe in your relationship?: Yes Female Reproductive History Menstrual control method: condoms History History 3 Para Hx # Term Pregnancies 2 Multiple births Hx # Pregnancies Ectopic pregnancies AB induced Hx Number of Living Children AB spontaneous
== END 2019-02-13 15:20 | disposition home or self-care (01) | DRG 439 ==
LOC: ER 05:10 → MS 05:18
PROVIDERS: Admitting Provider Surgery; Emergency Provider Emergency Medicine; Visit Provider Surgery
DX: K85.10 Biliary acute pancreatitis without necrosis or infection (principal); K80.12 Calculus of gallbladder with acute and chronic cholecystitis without obstruction; E87.6 Hypokalemia
CPT/HCPCS: 36415; 80053; 81025; 83690; 93005; 96361; 96365; 96375; 99223; 99232; 99238; 99285; 74177; 82150; 83735; 84484; 85025; 85610; 85730; 93010; J0131; J1885; J2405; J3480; J3490

== ENCOUNTER 2019-02-17 12:06 | Outpatient (REF) | payer BC, SELFPAY ==
[2019-02-17 19:08] LABS: Cholesterol 179 mg/dL (50-200); Glucose 104 mg/dL (70-100); HDL Cholesterol 54 mg/dL (40-60); LDL CHOLESTEROL 105 mg/dL (<100); TSH (W/Ref FT4) 0.85 uIU/mL (0.358-3.74); Triglyceride 111 mg/dL (30-150)
== END 2019-02-17 12:26 ==
LOC: NCHCN 12:06
PROVIDERS: PCP Nurse Practitioner; Visit Provider Nurse Practitioner
DX: Z00.00 Encounter for general adult medical examination without abnormal findings (principal); Z13.1 Encounter for screening for diabetes mellitus; Z13.29 Encounter for screening for other suspected endocrine disorder; Z13.220 Encounter for screening for lipoid disorders
CPT/HCPCS: 80061; 82947; 83721; 84443

== ENCOUNTER 2019-02-21 02:36 | Inpatient (IN) | payer BC, SELFPAY ==
[2019-02-21] VITALS (10 sets, daily range): BP systolic 119–138; BP diastolic 69–83; PULSE 54–104; RESP 12–20; TEMP 36.3–37.4; O2SAT 91–100
--- NOTE | 2019-02-21 02:36 | W.ED.GENAD ---
Discharge Plan Disposition Patient Disposition: [facility] INPATIENT Condition: Stable Discharge Details Chief Complaint: Abd Prob Clinical Impression: Cholecystitis Primary Care Provider: Lilly Melendez ED Provider: Vadlez Jara Home Meds and New Rx's Prescriptions: No Action Women's One Daily 1 EACH tablet 1 ea PO PRN RF: 0 Medical Decision Making 43 yo female with no chronic medical problems who was admitted on 02/12 with gallstone pancreatitis/acute cholecystitis, and her pain resolved within the first day and labs normalized so the surgeon felt she likely passed a stone. She was d/c'd and had planned for surgery in March. Tonight around 1am had acute onset similar pain to what she had last time she was admitted. She has pain in the epigastric and ruq on exam, no lower abdominal tenderness. Suspect recurrent pancreatitis/cholecystitis, will obtain lab work and imaging. labs reassuring, she is feeling somewhat better in pain after toradol. Zofran didn't help her n/v so compazine given which has helped, awaiting imaging results imaging shows gallstones and gallbladder wall edema. She is still having significant pain. I spoke with Dr. 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 She states that if we can get her pain under control she can call the clinic today for an appointment given reassuring lab work, if not will consult with the day surgeon. ' pt still in pain and has a longo's sign on my exam. Spoke with Dr. Shelby who will admit the pt, will hold on abx at this time. Differential Diagnosis pancreatitis, cholecystitis, biliary colic Medical Records Medical records reviewed: Yes I reviewed the patient's medical records. Imaging Data Radiologic Study: Attestation: I personally reviewed and interpreted this imaging study as follows: Imaging: CT Scan Radiologist's impression: IMPRESSION: Cholelithiasis. Nonspecific gallbladder wall edema with cholecystitis on the differential diagnosis. Lab Data Lab results reviewed: Yes I reviewed the patient's lab results. HPI General Mode of arrival: ambulatory. Date/Time Provider Initiated Documentation: 02/21/19 02:36. Limitations to Documentation: no limitations. Information obtained by: patient. History of Present Illness 43 year old F presents to the emergency department with the chief complaint of abdominal pain, described as severe, Quality is described as stabbing and sharp, and is localized to the abdomen. Patient reports no radiation. Patient started experiencing this hour(s) (2) and it has been constant. No relieving factors improve symptom(s), No exacerbating factors reported . Patient notes other (nausea). Patient did receive the following treatments prior to arrival, none Related Data Home Medications Medication Instructions Recorded Confirmed Women's One Daily 1 ea PO PRN 03/07/13 02/14/19 Allergies Allergy/AdvReac Type Severity Reaction Status Date / Time No Known Allergies Allergy Verified 02/21/19 02:42 General LU: 2 Review of Systems Review of Systems All systems reviewed & are unremarkable except as noted in HPI and below Constitutional Denies chills, Denies fever(s) and Denies weakness Cardiovascular Denies chest pain and Denies dyspnea Respiratory Denies dyspnea Gastrointestinal Denies vomiting Musculoskeletal Denies joint swelling Neurologic Denies weakness [facility] Medical History Acute cholecystitis with chronic cholecystitis (Acute) Acute cholecystitis due to biliary calculus (Acute) Acute gallstone pancreatitis (Acute) Surgical History Biopsy of breast Social History Smoking/Tobacco Use Status: Never Alcohol Intake: current Alcohol Intake frequency: other Drug use: Never Substance use type: does not use Seatbelt use: always Do you feel safe at home: Yes Do you feel safe in your relationship?: Yes Female Reproductive History Menstrual control method: condoms History History 3 Para Hx # Term Pregnancies 2 Multiple births Hx # Pregnancies Ectopic pregnancies AB induced Hx Number of Living Children AB spontaneous Exam Const General: no acute distress Orientation: alert HENMT Head: normal to inspection Ears: external ears normal General nose exam: external nose normal Mouth: moist mucous membranes Eyes General: appearance normal, both eyes and all related structures Neck Neck: normal visual inspection Resp Effort & Inspection: normal respiratory effort and able to speak in complete sentences Cardio Rate: regular rate GI Inspection: no abdominal wall ecchymosis Skin General skin exam: no rashes or lesions noted Neuro General: alert and oriented x3 Extrem General: normal to inspection Psych Mental Status: mental status grossly normal
--- NOTE | 2019-02-21 02:44 | ED.GENADUL_ITS ---
Discharge Plan Disposition Patient Disposition[facility] Condition: Stable Discharge Details Chief Complaint: Abd Prob Clinical Impression: Cholecystitis Primary Care Provider: Lilly Melendez ED Provider: Valdez Jara Home Meds and New Rx's Prescriptions: No Action Women's One Daily 1 EACH tablet 1 ea PO PRN RF: 0 Medical Decision Making 43 yo female with no chronic medical problems who was admitted on 02/12 with gallstone pancreatitis/acute cholecystitis, and her pain resolved within the first day and labs normalized so the surgeon felt she likely passed a stone. She was d/c'd and had planned for surgery in March. Tonight around 1am had acute onset similar pain to what she had last time she was admitted. She has pain in the epigastric and ruq on exam, no lower abdominal tenderness. Suspect recurrent pancreatitis/cholecystitis, will obtain lab work and imaging. labs reassuring, she is feeling somewhat better in pain after toradol. Zofran didn't help her n/v so compazine given which has helped, awaiting imaging results imaging shows gallstones and gallbladder wall edema. She is still having significant pain. I spoke with Dr. 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 She states that if we can get her pain under control she can call the clinic today for an appointment given reassuring lab work, if not will consult with the day surgeon. ' pt still in pain and has a longo's sign on my exam. Spoke with Dr. Shelby who will admit the pt, will hold on abx at this time. Differential Diagnosis pancreatitis, cholecystitis, biliary colic Medical Records Medical records reviewed: Yes I reviewed the patient's medical records. Imaging Data Radiologic Study: Attestation: I personally reviewed and interpreted this imaging study as follows: Imaging: CT Scan Radiologist's impression: IMPRESSION: Cholelithiasis. Nonspecific gallbladder wall edema with cholecystitis on the differential diagnosis. Lab Data Lab results reviewed: Yes I reviewed the patient's lab results. HPI General Mode of arrival: ambulatory . Date/Time Provider Initiated Documentation: 02/21/19 02:36 . Limitations to Documentation: no limitations . Information obtained by: patient . History of Present Illness 43 year old F presents to the emergency department with the chief complaint of abdominal pain, described as severe, Quality is described as stabbing and sharp, and is localized to the abdomen. Patient reports no radiation. Patient started experiencing this hour(s) (2) and it has been constant. No relieving factors improve symptom(s), No exacerbating factors reported . Patient notes other (nausea). Patient did receive the following treatments prior to arrival, none Related Data Home Medications Medication Instructions Recorded Confirmed Women's One Daily 1 ea PO PRN 03/07/13 02/14/19 Allergies Allergy/AdvReac Type Severity Reaction Status Date / Time No Known Allergies Allergy Verified 02/21/19 02:42 General LU: 2 Review of Systems Review of Systems All systems reviewed & are unremarkable except as noted in HPI and below Constitutional Denies chills, Denies fever(s) and Denies weakness Cardiovascular Denies chest pain and Denies dyspnea Respiratory Denies dyspnea Gastrointestinal Denies vomiting Musculoskeletal Denies joint swelling Neurologic Denies weakness [facility] Medical History Acute cholecystitis with chronic cholecystitis (Acute) Acute cholecystitis due to biliary calculus (Acute) Acute gallstone pancreatitis (Acute) Surgical History Biopsy of breast Social History Smoking/Tobacco Use Status: Never Alcohol Intake: current Alcohol Intake frequency: other Drug use: Never Substance use type: does not use Seatbelt use: always Do you feel safe at home: Yes Do you feel safe in your relationship?: Yes Female Reproductive History Menstrual control method: condoms History History 3 Para Hx # Term Pregnancies 2 Multiple births Hx # Pregnancies Ectopic pregnancies AB induced Hx Number of Living Children AB spontaneous Exam Const General: no acute distress Orientation: alert HENMT Head: normal to inspection Ears: external ears normal General nose exam: external nose normal Mouth: moist mucous membranes Eyes General: appearance normal, both eyes and all related structures Neck Neck: normal visual inspection Resp Effort & Inspection: normal respiratory effort and able to speak in complete sentences Cardio Rate: regular rate GI Inspection: no abdominal wall ecchymosis Skin General skin exam: no rashes or lesions noted Neuro General: alert and oriented x3 Extrem General: normal to inspection Psych Mental Status: mental status grossly normal
[2019-02-21] MEDS: Ketorolac 15 MG/ML VIAL IVP ×2 (03:05→10:18)
[2019-02-21] MEDS: Ondansetron 4 MG/2 ML VIAL IVP ×2 (03:06→07:32)
[2019-02-21] MEDS: Normal Saline 1,000 ML 1000 ML IV (03:06)
[2019-02-21] MEDS: Normal Saline Flush 10 ML SYR IVP ×3 (03:07→16:24)
[2019-02-21] MEDS: Prochlorperazine 10 MG/2 ML VIAL (03:23)
[2019-02-21 03:34] LABS: Abs Immature Grans 0.03 k/cumm (0.0-0.09); Absolute Basophil Count 0.06 k/cumm (0.0-0.2); Absolute Eosinophil Count 0.19 k/cumm (0.0-0.7); Absolute Lymphocyte Count 2.68 k/cumm (1.2-3.4); Absolute Neutrophil Count 5.82 k/cumm (1.2-6.7); Basophils % 0.6; HCT 39.1 % (36.0-46.0); HGB 12.8 g/dL (12.0-15.5); Immature Grans % 0.3; Lymphocytes % 28.6; Mean Corp. HGB Concentration 32.7 g/dL (32.0-36.0); Mean Corpuscular Hemoglobin 30.8 pg (27.0-33.0); Mean Platelet Volume 12.1 fL (8.0-11.0); Monocytes % 6.4; Neutrophils % 62.1; Platelet Count 267 x1000/uL (130-400); RBC 4.16 m/cumm (4.00-5.20); RBC Distribution Width 12.3 % (11.7-14.6); White Blood Cell Count 9.38 k/cumm (4.4-10.8)
[2019-02-21] MEDS: Omnipaque 350 MG/ML 100 ML BTL IJ (03:38)
--- NOTE | 2019-02-21 03:41 | DI.CT_ITS ---
SYMPTOM/DIAGNOSIS: EPIGASTRIC RUQ PAIN ABDOMEN AND PELVIC CT: CT examination of the abdomen and pelvis was performed with a bolus infusion of 100 cc's of Omnipaque 350. Images obtained through the lung bases are unremarkable. There is a probable small hiatal hernia. Liver and spleen are unremarkable. Gallbladder contains stones and there is edema of the gallbladder wall. No biliary dilatation or pancreatic abnormality is seen. Adrenals and kidneys are unremarkable. No significant abdominal wall hernia is seen. No significant abdominal or pelvic adenopathy. There is a small quantity of free fluid in the pelvis. Abdominal aorta is of normal diameter and no major vascular abnormality is seen. CSR TECHNICIAN structures appear intact. Appendix is normal and there is no evidence of diverticulitis or bowel obstruction. CONCLUSION: Cholelithiasis and gallbladder thickening/edema, the possibility of acute cholecystitis is raised. Small quantity of free pelvic fluid noted as well.
[2019-02-21 03:53] LABS: PTT Activated 20.7 sec (21.0-31.4); Prothrombin Time 10.3 sec (9.3-11.0)
[2019-02-21 03:55] LABS: ALT 25 U/L (12-78); AST 38 U/L (15-37); Albumin 3.6 g/dL (3.4-5.0); Alkaline Phosphatase 30 U/L (46-116); Anion Gap 8.8 mmol/L (3-11); BUN 11 mg/dL (7-18); Bilirubin, Direct 0.07 mg/dL (0.00-0.20); Bilirubin, Total 0.7 mg/dL (0.2-1.0); CO2 26.2 mmol/L (21.0-32.0); CREATININE 0.64 mg/dL (0.55-1.02); Calcium 8.7 mg/dL (8.5-10.1); Chloride 100 mmol/L (98-107); Glucose 159 mg/dL (70-100); Lipase 141 U/L (73-393); Potassium 4.4 mmol/L (3.5-5.1); Sodium 135 mmol/L (136-145); Total Protein 8.1 g/dL (6.4-8.2)
[2019-02-21] MEDS: Normal Saline 1,000 ML 150 ML IV ×4 (04:50→20:42)
--- NOTE | 2019-02-21 04:53 | DI.VRAD_ITS ---
EXAM: CT Abdomen and Pelvis With Contrast EXAM DATE/TIME: 02/21/2019 2:40 AM CLINICAL HISTORY: 43 years old, female; Abdominal pain; Localized; Right upper quadrant (ruq); Patient HX: Epigastric pain/ruq, nausea, vomiting TECHNIQUE: Imaging protocol: Axial computed tomography images of the abdomen and pelvis with intravenous contrast. Coronal and sagittal reformatted images were created and reviewed. Radiation optimization: All CT scans at this facility use at least one of these dose optimization techniques: automated exposure control; mA and/or kV adjustment per patient size (includes targeted exams where dose is matched to clinical indication); or iterative reconstruction. Contrast material: [id number]; Contrast volume: 69 ml; Contrast route: IV; COMPARISON: CT ABDOMEN PELVIS W 02/12/2019 3:04 AM FINDINGS: ABDOMEN: Liver: No suspicious lesions. Gallbladder and bile ducts: Stones in the gallbladder. Gallbladder wall is mildly edematous. Pancreas: Unremarkable. No ductal dilation. Spleen: No suspicious lesions. Adrenals: Unremarkalbe. No suspicious mass. Kidneys and ureters: Unremarkable. No hydro. No suspicious lesions. Stomach and bowel: Unremarkable. No obstruction or inflammatory changes. Appendix: No evidence of appendicitis. PELVIS: Bladder: Unremarkable as visualized. Reproductive: Unremarkable as visualized. ABDOMEN and PELVIS: Intraperitoneal space: No free air. No significant fluid collection. Bones/joints: No acute fracture. No dislocation. Soft tissues: Unremarkable. Vasculature: Unremarkable. No acute findings Lymph nodes: Unremarkable. IMPRESSION: Cholelithiasis. Nonspecific gallbladder wall edema with cholecystitis on the differential diagnosis. Dictated and Authenticated by: Salvatore Boss MD. Ordering:CRISPIN Kellogg MD
[2019-02-21] MEDS: oxyCODONE 5 MG TAB PO (05:45)
--- NOTE | 2019-02-21 07:08 | NUR.NOTE ---
Patient admitted to the Med/Surg unit from the ER with history of Cholecystiitis. Started having pain last night was brought to the ER by . He gave history that patient started having pain after dinner last night and was subsequently taken to the this hospital. She vomited x1 while in that department. Patient is AxOx3 but drowsy answers questions appropriately. State she is having abdominal pain at tis time NPO at this time.
[2019-02-21] MEDS: MORPHine 2 MG/ML SYR 4 MG IVP (07:23)
--- NOTE | 2019-02-21 07:50 | W.PREOPHP ---
Date of service: 02/21/19 Time of Service: 07:50 Assessment and Plan (1) Acute cholecystitis with chronic cholecystitis: Current visit: No Status: Acute 43 y/o female with long standing history of cholethiasis, acute on chronic cholecystitis and recent admisison for gallstone pancreatitis presented to the ER [facility] acute cholecystitis. She is having significant epigastric pain that radiates to her back with associated nausea and vomiting. DIET: NPO PAIN- Morphine is ordered Zofran ordered for N/V Plan// Laproscopic Cholecystectomy for acute cholecystitis. History of Present Illness Chief Complaint: Abdominal pain Narrative: 43 y/o female presented to the ER with complaints of severe abdominal pain/epigastric pain that radiates to her back. (+) nausea and vomiting. CT scan showed gallbladder wall edema with cholecystitis. She was last admitted on 02/12 with gallstone pacreatitis/acute cholecystitis. She was d/c the next day, with abdominal pain resolved and tolerating a normal diet. She was seen in the General Surgery as an outpatient and was scheduled for an out patient laproscopic cholecystectomy. Arrived with patient sitting upright in bed, leaning forward, with her eyes closed. She recently received Morphine. She is very soft, spoken and required encouragement to answer questions to the best of her ability. She denies having any previous surgeries. Denies easy bleeding or easy bruising. Denies chest pain, palpitations, dyspnea or dyspnea with exertion. She denies use of tobacco, ETOH, marijuana or any other recreational or illegal drugs. Review of Systems Constitutional Denies excessive sweating and Denies fatigue Cardiovascular Denies chest pain, Denies chest pain at rest, Denies chest pain with activity, Denies syncope, Denies dyspnea and Denies dyspnea on exertion Respiratory Denies cough, Denies dyspnea, Denies dyspnea on exertion and Denies wheezing Gastrointestinal Reports abdominal pain (Epigastric pain that radiates to her back), Reports nausea and Reports vomiting Neurologic Denies syncope Endocrine Denies excessive sweating and Denies fatigue Hematologic/Lymphatic Denies easy bleeding and Denies easy bruising Allergic/Immunologic Denies wheezing [facility] Medical History Acute cholecystitis with chronic cholecystitis (Acute) Acute cholecystitis due to biliary calculus (Acute) Acute gallstone pancreatitis (Acute) Surgical History Biopsy of breast Social History Smoking/Tobacco Use Status: Never Alcohol Intake: current Alcohol Intake frequency: other Drug use: Never Substance use type: does not use Seatbelt use: always Do you feel safe at home: Yes Do you feel safe in your relationship?: Yes Female Reproductive History Menstrual control method: condoms History History 3 Para Hx # Term Pregnancies 2 Multiple births Hx # Pregnancies Ectopic pregnancies AB induced Hx Number of Living Children AB spontaneous Meds Home Medications Medication Instructions Recorded Confirmed Type Women's One Daily 1 ea PO PRN 03/07/13 02/14/19 History Allergies Allergy/AdvReac Type Severity Reaction Status Date / Time No Known Allergies Allergy Verified 02/21/19 02:42 Exam Const General: acute distress severe and ill appearing Orientation: alert Resp Effort & Inspection: normal respiratory effort (Shallow breaths) Auscultation: clear to auscultation bilaterally, no crackles and no wheezes Cardio Rate: regular rate Rhythm: regular rhythm Heart Sounds: S1 normal, S2 normal and no murmurs GI Inspection: normal to inspection and non-distended Palpation: soft, guarding and tender in the epigastrum and Heredia's sign positive Auscultation: hypoactive bowel sounds Results Labs : 02/21/19 03:00 02/21/19 03:00 Laboratory Results - last 24 hr 02/21/19 02/21/19 02/21/19 03:00 03:00 03:00 WBC 9.38 RBC 4.16 Hgb 12.8 Hct 39.1 MCV 94.0 MCH 30.8 MCHC 32.7 RDW 12.3 Plt Count 267 MPV 12.1 H Immature Gran % 0.3 Neutrophils % 62.1 Lymphocytes % 28.6 Monocytes % 6.4 Eosinophils % 2.0 Basophils % 0.6 Absolute Neutrophils 5.82 Absolute Lymphocytes 2.68 Absolute Monocytes 0.60 Absolute Eosinophils 0.19 Absolute Basophils 0.06 PT 10.3 INR 1.0 APTT 20.7 L Sodium 135 L Potassium 4.4 Chloride 100 Carbon Dioxide 26.2 Anion Gap 8.8 BUN 11 Creatinine 0.64 Estimated GFR/1.73 m2 >= 60.00 Glucose 159 H Calcium 8.7 Total Bilirubin 0.7 Conjugated Bilirubin 0.07 AST 38 H ALT 25 Alkaline Phosphatase 30 L Total Protein 8.1 Albumin 3.6 Lipase 141 Last Vital Signs Temp 36.3 C L 02/21/19 06:58 Pulse 94 H 02/21/19 06:58 Resp 16 02/21/19 06:58 BP 136/83 02/21/19 06:58 Pulse Ox 97 02/21/19 06:58
[2019-02-21] MEDS: ACETAMINOPHEN 1,000 MG/100 ML BTL 400 MG IVPB (09:17)
--- NOTE | 2019-02-21 15:02 | PHARADMIT ---
Admission Pharmacy Clinical Review CHOLECYSTITIS Code Status Full Code Current Weight Wgt-48.5 kg Renally Cleared and Narrow Therapeutic Index Meds CrCl~ 63.78mL/min Meds-OK QTc Value / Action Taken QTc-457 na BP Control, Fever BP- 119/76 Tmax- 36.5C Electrolytes reviewed Na-135 K+4.4 DVT Prophylaxis none ??surgery Opiate Usage / Scheduled Bowel Regimen Ordered Yes no NPO Plt/SCr for Heparin / Enoxaparin Plts-267 SCr-0.64 INR for Warfarin inr-1.0 H/H stable, WBC/Bands H&H- 12.8/39.1 WBC-9.38 Antibiotic appropriateness none Cultures and Sensitivities none Surgical ABX d/c within 24 hr na DM control / Insulin Dosing BG-159 Heart Failure (Check EF%) (ADRIEL's, B-Block, Diuretics) none IV to PO Switch No Home Meds Reviewed Yes Home Meds Not Ordered M-vits Comments Lipase-141
--- NOTE | 2019-02-21 16:24 | W.PM.PROGNOT ---
Date of Service Date of service: 02/21/19 Time of Service: 16:24 Assessment and Plan (1) Acute cholecystitis with chronic cholecystitis: Current visit: No Status: Acute A\\ Acute Cholecystitis with Gallstones P\\ Laparoscopic Cholecystectomy tomorrow Risks, benefits and complications have been reviewed. Complications include but are not limited to bleeding, infection, bile leak, injury to bowel, pancreas and stomach. Injury to the common bile duct necessitating transfer to [facility] or [facility] for specialist to repair. [place] and . Issue with EKG discussed with family. At this point with 2 normal EKG I am going to assume that the third abnormal EKG is not actually hers as it was done in the ED by an ED nurse when the patient was already admitted to MED/SURG. Subjective Interval history since last seen: Patient complains of RUQ pain. She has not had any pain medication for a while Discussed with patient the issue with her EKG. A 3rd EKG was done which was normal. We discussed the fact that we think the second EKG done at her last admission was probably not hers. She has had no chest pain today. Her pain is epigastric an RUQ. She has no history of chest pain, GA. We went over the Laparoscopic Cholecystectomy and its complications. Exam Resp Effort & Inspection: normal respiratory effort Auscultation: clear to auscultation bilaterally Cardio Rate: regular rate Rhythm: regular rhythm Heart Sounds: no gallops, no murmurs and no rubs GI Inspection: normal to inspection Palpation: soft, no hepatosplenomegaly and tender in the RUQ (No guarding or rebound) Objective Objective Clinical Data: Abnormal lab results 02/21/19 02/21/19 02/21/19 Range/Units 03:00 03:00 03:00 MPV 12.1 H (8.0-11.0) fL APTT 20.7 L (21.0-31.4) sec Sodium 135 L (136-145) mmol/L Glucose 159 H (70-100) mg/dL AST 38 H (15-37) U/L Alkaline Phosphatase 30 L (46-116) U/L Vital Signs Temperature 98.6 F 02/21/19 15:15 Temperature Source Tympanic 02/21/19 15:15 Pulse 104 H 02/21/19 15:15 Pulse Rhythm Regular 02/21/19 08:53 Respiratory Rate 19 02/21/19 15:15 Respiratory Effort Non-Labored 02/21/19 08:53 Respiratory Depth Normal 02/21/19 08:53 Respiratory Pattern Normal 02/21/19 08:53 Blood Pressure 124/78 02/21/19 15:15 Blood Pressure Position Sitting 02/21/19 02:39 Pulse Oximetry 99 02/21/19 15:15 Oxygen Delivery Method Room Air 02/21/19 15:15 Oxygen Flow Rate 0 02/21/19 15:15 Pain Level 3 02/21/19 11:18 Intake & Output 02/20/19 02/21/19 02/21/19 23:59 11:59 23:59 Intake Total 1780.5 / 2428.0 647.5 / 2428.0 Output Total 1300 / 2500 1200 / 2500 Balance 480.5 / -72.0 -552.5 / -72.0 Weight 106 lb 15.986 oz Intake: IV 1780.5 / 2428.0 647.5 / 2428.0 Output: Urine 1100 / 2300 1200 / 2300 Emesis 200 / 200 Other: Urine Color Yellow Yellow Urine Appearance Clear Clear Urine Odor Normal Normal Emesis Description Retching Undigested Food Bile Voiding Methods Toilet Toilet Laboratory Results WBC 9.38 k/cumm (4.4-10.8) 02/21/19 03:00 RBC 4.16 m/cumm (4.00-5.20) 02/21/19 03:00 Hgb 12.8 g/dL (12.0-15.5) 02/21/19 03:00 Hct 39.1 % (36.0-46.0) 02/21/19 03:00 MCV 94.0 fL (80-95) 02/21/19 03:00 MCH 30.8 pg (27.0-33.0) 02/21/19 03:00 MCHC 32.7 g/dL (32.0-36.0) 02/21/19 03:00 RDW 12.3 % (11.7-14.6) 02/21/19 03:00 Plt Count 267 x1000/uL (130-400) 02/21/19 03:00 MPV 12.1 fL (8.0-11.0) H 02/21/19 03:00 Immature Gran % 0.3 02/21/19 03:00 Neutrophils % 62.1 02/21/19 03:00 Lymphocytes % 28.6 02/21/19 03:00 Monocytes % 6.4 02/21/19 03:00 Eosinophils % 2.0 02/21/19 03:00 Basophils % 0.6 02/21/19 03:00 Absolute Neutrophils 5.82 k/cumm (1.2-6.7) 02/21/19 03:00 Absolute Lymphocytes 2.68 k/cumm (1.2-3.4) 02/21/19 03:00 Absolute Monocytes 0.60 k/cumm (0.11-0.7) 02/21/19 03:00 Absolute Eosinophils 0.19 k/cumm (0.0-0.7) 02/21/19 03:00 Absolute Basophils 0.06 k/cumm (0.0-0.2) 02/21/19 03:00 PT 10.3 sec (9.3-11.0) 02/21/19 03:00 INR 1.0 (0.9-1.1) 02/21/19 03:00 APTT 20.7 sec (21.0-31.4) L 02/21/19 03:00 Sodium 135 mmol/L (136-145) L 02/21/19 03:00 Potassium 4.4 mmol/L (3.5-5.1) 02/21/19 03:00 Chloride 100 mmol/L (98-107) 02/21/19 03:00 Carbon Dioxide 26.2 mmol/L (21.0-32.0) 02/21/19 03:00 Anion Gap 8.8 mmol/L (3-11) 02/21/19 03:00 BUN 11 mg/dL (7-18) 02/21/19 03:00 Creatinine 0.64 mg/dL (0.55-1.02) 02/21/19 03:00 Estimated GFR/1.73 m2 >= 60.00 (mL/min/1.73m2) 02/21/19 03:00 Glucose 159 mg/dL (70-100) H 02/21/19 03:00 Calcium 8.7 mg/dL (8.5-10.1) 02/21/19 03:00 Total Bilirubin 0.7 mg/dL (0.2-1.0) 02/21/19 03:00 Conjugated Bilirubin 0.07 mg/dL (0.00-0.20) 02/21/19 03:00 AST 38 U/L (15-37) H 02/21/19 03:00 ALT 25 U/L (12-78) 02/21/19 03:00 Alkaline Phosphatase 30 U/L (46-116) L 02/21/19 03:00 Total Protein 8.1 g/dL (6.4-8.2) 02/21/19 03:00 Albumin 3.6 g/dL (3.4-5.0) 02/21/19 03:00 Lipase 141 U/L (73-393) 02/21/19 03:00
--- NOTE | 2019-02-21 16:35 | PGE_ITS ---
Date of Service Date of service: 02/21/19 Time of Service: 16:24 Assessment and Plan (1) Acute cholecystitis with chronic cholecystitis: Current visit: No Status: Acute A\\ Acute Cholecystitis with Gallstones P\\ Laparoscopic Cholecystectomy tomorrow Risks, benefits and complications have been reviewed. Complications include but are not limited to bleeding, infection, bile leak, injury to bowel, pancreas and stomach. Injury to the common bile duct necessitating transfer to [facility] or [facility] for specialist to repair. [place] and . Issue with EKG discussed with family. At this point with 2 normal EKG I am going to assume that the third abnormal EKG is not actually hers as it was done in the ED by an ED nurse when the patient was already admitted to MED/SURG. Subjective Interval history since last seen: Patient complains of RUQ pain. She has not had any pain medication for a while Discussed with patient the issue with her EKG. A 3rd EKG was done which was normal. We discussed the fact that we think the second EKG done at her last admission was probably not hers. She has had no chest pain today. Her pain is epigastric an RUQ. She has no history of chest pain, NM. We went over the Laparoscopic Cholecystectomy and its complications. Exam Resp Effort & Inspection: normal respiratory effort Auscultation: clear to auscultation bilaterally Cardio Rate: regular rate Rhythm: regular rhythm Heart Sounds: no gallops, no murmurs and no rubs GI Inspection: normal to inspection Palpation: soft, no hepatosplenomegaly and tender in the RUQ (No guarding or rebound) Objective Objective Clinical Data: Abnormal lab results 02/21/19 02/21/19 02/21/19 Range/Units 03:00 03:00 03:00 MPV 12.1 H (8.0-11.0) fL APTT 20.7 L (21.0-31.4) sec Sodium 135 L (136-145) mmol/L Glucose 159 H (70-100) mg/dL AST 38 H (15-37) U/L Alkaline Phosphatase 30 L (46-116) U/L Vital Signs Temperature 98.6 F 02/21/19 15:15 Temperature Source Tympanic 02/21/19 15:15 Pulse 104 H 02/21/19 15:15 Pulse Rhythm Regular 02/21/19 08:53 Respiratory Rate 19 02/21/19 15:15 Respiratory Effort Non-Labored 02/21/19 08:53 Respiratory Depth Normal 02/21/19 08:53 Respiratory Pattern Normal 02/21/19 08:53 Blood Pressure 124/78 02/21/19 15:15 Blood Pressure Position Sitting 02/21/19 02:39 Pulse Oximetry 99 02/21/19 15:15 Oxygen Delivery Method Room Air 02/21/19 15:15 Oxygen Flow Rate 0 02/21/19 15:15 Pain Level 3 02/21/19 11:18 Intake & Output 02/20/19 02/21/19 02/21/19 23:59 11:59 23:59 Intake Total 1780.5 / 2428.0 647.5 / 2428.0 Output Total 1300 / 2500 1200 / 2500 Balance 480.5 / -72.0 -552.5 / -72.0 Weight 106 lb 15.986 oz Intake: IV 1780.5 / 2428.0 647.5 / 2428.0 Output: Urine 1100 / 2300 1200 / 2300 Emesis 200 / 200 Other: Urine Color Yellow Yellow Urine Appearance Clear Clear Urine Odor Normal Normal Emesis Description Retching Undigested Food Bile Voiding Methods Toilet Toilet Laboratory Results WBC 9.38 k/cumm (4.4-10.8) 02/21/19 03:00 RBC 4.16 m/cumm (4.00-5.20) 02/21/19 03:00 Hgb 12.8 g/dL (12.0-15.5) 02/21/19 03:00 Hct 39.1 % (36.0-46.0) 02/21/19 03:00 MCV 94.0 fL (80-95) 02/21/19 03:00 MCH 30.8 pg (27.0-33.0) 02/21/19 03:00 MCHC 32.7 g/dL (32.0-36.0) 02/21/19 03:00 RDW 12.3 % (11.7-14.6) 02/21/19 03:00 Plt Count 267 x1000/uL (130-400) 02/21/19 03:00 MPV 12.1 fL (8.0-11.0) H 02/21/19 03:00 Immature Gran % 0.3 02/21/19 03:00 Neutrophils % 62.1 02/21/19 03:00 Lymphocytes % 28.6 02/21/19 03:00 Monocytes % 6.4 02/21/19 03:00 Eosinophils % 2.0 02/21/19 03:00 Basophils % 0.6 02/21/19 03:00 Absolute Neutrophils 5.82 k/cumm (1.2-6.7) 02/21/19 03:00 Absolute Lymphocytes 2.68 k/cumm (1.2-3.4) 02/21/19 03:00 Absolute Monocytes 0.60 k/cumm (0.11-0.7) 02/21/19 03:00 Absolute Eosinophils 0.19 k/cumm (0.0-0.7) 02/21/19 03:00 Absolute Basophils 0.06 k/cumm (0.0-0.2) 02/21/19 03:00 PT 10.3 sec (9.3-11.0) 02/21/19 03:00 INR 1.0 (0.9-1.1) 02/21/19 03:00 APTT 20.7 sec (21.0-31.4) L 02/21/19 03:00 Sodium 135 mmol/L (136-145) L 02/21/19 03:00 Potassium 4.4 mmol/L (3.5-5.1) 02/21/19 03:00 Chloride 100 mmol/L (98-107) 02/21/19 03:00 Carbon Dioxide 26.2 mmol/L (21.0-32.0) 02/21/19 03:00 Anion Gap 8.8 mmol/L (3-11) 02/21/19 03:00 BUN 11 mg/dL (7-18) 02/21/19 03:00 Creatinine 0.64 mg/dL (0.55-1.02) 02/21/19 03:00 Estimated GFR/1.73 m2 >= 60.00 (mL/min/1.73m2) 02/21/19 03:00 Glucose 159 mg/dL (70-100) H 02/21/19 03:00 Calcium 8.7 mg/dL (8.5-10.1) 02/21/19 03:00 Total Bilirubin 0.7 mg/dL (0.2-1.0) 02/21/19 03:00 Conjugated Bilirubin 0.07 mg/dL (0.00-0.20) 02/21/19 03:00 AST 38 U/L (15-37) H 02/21/19 03:00 ALT 25 U/L (12-78) 02/21/19 03:00 Alkaline Phosphatase 30 U/L (46-116) L 02/21/19 03:00 Total Protein 8.1 g/dL (6.4-8.2) 02/21/19 03:00 Albumin 3.6 g/dL (3.4-5.0) 02/21/19 03:00 Lipase 141 U/L (73-393) 02/21/19 03:00
[2019-02-21] MEDS: Pantoprazole 40 MG VIAL IVP (17:12)
[2019-02-22] VITALS (16 sets, daily range): BP systolic 84–138; BP diastolic 46–86; PULSE 68–88; RESP 10–24; TEMP 36.3–37.4; O2SAT 95–100
[2019-02-22] MEDS: Normal Saline 1,000 ML 150 ML IV (03:07)
[2019-02-22 07:02] LABS: Abs Immature Grans 0.06 k/cumm (0.0-0.09); Absolute Basophil Count 0.02 k/cumm (0.0-0.2); Absolute Lymphocyte Count 0.99 k/cumm (1.2-3.4); Absolute Monocyte Count 1.41 k/cumm (0.11-0.7); Basophils % 0.1; Eosinophils % 0.2; HCT 38.2 % (36.0-46.0); HGB 12.4 g/dL (12.0-15.5); Immature Grans % 0.3; Lymphocytes % 5.2; Mean Corp. HGB Concentration 32.5 g/dL (32.0-36.0); Mean Corpuscular Hemoglobin 30.6 pg (27.0-33.0); Mean Corpuscular Volume 94.3 fL (80-95); Mean Platelet Volume 11.5 fL (8.0-11.0); Monocytes % 7.4; Neutrophils % 86.8; Platelet Count 200 x1000/uL (130-400); RBC 4.05 m/cumm (4.00-5.20); RBC Distribution Width 12.5 % (11.7-14.6)
[2019-02-22 07:07] LABS: Absolute Eosinophil Count 0.04 k/cumm (0.0-0.7); Absolute Neutrophil Count 16.58 k/cumm (1.2-6.7)
[2019-02-22 07:13] LABS: ALT 19 U/L (12-78); AST 18 U/L (15-37); Albumin 3.1 g/dL (3.4-5.0); Alkaline Phosphatase 36 U/L (46-116); Anion Gap 10.9 mmol/L (3-11); BUN 3 mg/dL (7-18); Bilirubin, Total 1.7 mg/dL (0.2-1.0); CO2 24.1 mmol/L (21.0-32.0); CREATININE 0.48 mg/dL (0.55-1.02); Calcium 7.9 mg/dL (8.5-10.1); Chloride 99 mmol/L (98-107); Glucose 135 mg/dL (70-100); Potassium 3.2 mmol/L (3.5-5.1); Sodium 134 mmol/L (136-145); Total Protein 7.3 g/dL (6.4-8.2)
--- NOTE | 2019-02-22 07:24 | W.PM.PROGNOT ---
Documented by User: CLAYTON Wright 02/22/19 07:27 Date of Service Date of service: 02/22/19 Time of Service: 07:24 Assessment and Plan (1) Acute cholecystitis with chronic cholecystitis: Current visit: No Status: Acute Abdominal pain continues, however is more controlled today. Continue NPO Planning to have Laproscopic Cholecystectomy later today pending EKG Subjective Patient reports: voiding w/o difficulty Interval history since last seen: The pain okay right now. Denies any nausea or vomiting. Exam Const General: cooperative, healthy appearing and comfortable Orientation: alert and oriented x3 Resp Effort & Inspection: normal respiratory effort, no audible wheezes and no cough GI Inspection: normal to inspection and non-distended Palpation: soft, no guarding and tender in the RUQ Objective Objective Clinical Data: Abnormal lab results 02/22/19 02/22/19 Range/Units 06:15 06:15 WBC 19.10 H D (4.4-10.8) k/cumm MPV 11.5 H (8.0-11.0) fL Absolute Neutrophils 16.58 H (1.2-6.7) k/cumm Absolute Lymphocytes 0.99 L (1.2-3.4) k/cumm Absolute Monocytes 1.41 H (0.11-0.7) k/cumm Sodium 134 L (136-145) mmol/L Potassium 3.2 L D (3.5-5.1) mmol/L BUN 3 L (7-18) mg/dL Creatinine 0.48 L (0.55-1.02) mg/dL Glucose 135 H (70-100) mg/dL Calcium 7.9 L (8.5-10.1) mg/dL Total Bilirubin 1.7 H (0.2-1.0) mg/dL Alkaline Phosphatase 36 L (46-116) U/L Albumin 3.1 L (3.4-5.0) g/dL Vital Signs Temperature 37.4 C 02/21/19 23:39 Temperature Source Tympanic 02/21/19 23:39 Pulse 54 L 02/21/19 23:39 Pulse Rhythm Regular 02/22/19 05:12 Respiratory Rate 18 02/21/19 23:39 Respiratory Effort Non-Labored 02/22/19 05:12 Respiratory Depth Normal 02/22/19 05:12 Respiratory Pattern Normal 02/22/19 05:12 Blood Pressure 119/83 02/21/19 23:39 Blood Pressure Position Sitting 02/21/19 02:39 Pulse Oximetry 91 L 02/21/19 23:39 Oxygen Delivery Method Room Air 02/21/19 23:39 Oxygen Flow Rate 0 02/21/19 23:39 Pain Level 10 02/21/19 18:35 Intake & Output 02/21/19 02/22/19 02/22/19 18:59 06:59 18:59 Intake Total 1428.0 / 4390.5 2962.5 / 4390.5 Output Total 2300 / 3900 1600 / 3900 Balance -872.0 / 490.5 1362.5 / 490.5 Weight 49.1 kg Intake: IV 1428.0 / 4390.5 2962.5 / 4390.5 Output: Urine 2300 / 3900 1600 / 3900 Other: Urine Color Yellow Yellow Urine Appearance Clear Clear Urine Odor Normal Normal Voiding Methods Toilet Toilet Laboratory Results WBC 19.10 k/cumm (4.4-10.8) H D 02/22/19 06:15 RBC 4.05 m/cumm (4.00-5.20) 02/22/19 06:15 Hgb 12.4 g/dL (12.0-15.5) 02/22/19 06:15 Hct 38.2 % (36.0-46.0) 02/22/19 06:15 MCV 94.3 fL (80-95) 02/22/19 06:15 MCH 30.6 pg (27.0-33.0) 02/22/19 06:15 MCHC 32.5 g/dL (32.0-36.0) 02/22/19 06:15 RDW 12.5 % (11.7-14.6) 02/22/19 06:15 Plt Count 200 x1000/uL (130-400) 02/22/19 06:15 MPV 11.5 fL (8.0-11.0) H 02/22/19 06:15 Immature Gran % 0.3 02/22/19 06:15 Neutrophils % 86.8 02/22/19 06:15 Lymphocytes % 5.2 02/22/19 06:15 Monocytes % 7.4 02/22/19 06:15 Eosinophils % 0.2 02/22/19 06:15 Basophils % 0.1 02/22/19 06:15 Absolute Neutrophils 16.58 k/cumm (1.2-6.7) H 02/22/19 06:15 Absolute Lymphocytes 0.99 k/cumm (1.2-3.4) L 02/22/19 06:15 Absolute Monocytes 1.41 k/cumm (0.11-0.7) H 02/22/19 06:15 Absolute Eosinophils 0.04 k/cumm (0.0-0.7) 02/22/19 06:15 Absolute Basophils 0.02 k/cumm (0.0-0.2) 02/22/19 06:15 PT 10.3 sec (9.3-11.0) 02/21/19 03:00 INR 1.0 (0.9-1.1) 02/21/19 03:00 APTT 20.7 sec (21.0-31.4) L 02/21/19 03:00 Sodium 134 mmol/L (136-145) L 02/22/19 06:15 Potassium 3.2 mmol/L (3.5-5.1) L D 02/22/19 06:15 Chloride 99 mmol/L (98-107) 02/22/19 06:15 Carbon Dioxide 24.1 mmol/L (21.0-32.0) 02/22/19 06:15 Anion Gap 10.9 mmol/L (3-11) 02/22/19 06:15 BUN 3 mg/dL (7-18) L 02/22/19 06:15 Creatinine 0.48 mg/dL (0.55-1.02) L 02/22/19 06:15 Estimated GFR/1.73 m2 >= 60.00 (mL/min/1.73m2) 02/22/19 06:15 Glucose 135 mg/dL (70-100) H 02/22/19 06:15 Calcium 7.9 mg/dL (8.5-10.1) L 02/22/19 06:15 Total Bilirubin 1.7 mg/dL (0.2-1.0) H 02/22/19 06:15 Conjugated Bilirubin 0.07 mg/dL (0.00-0.20) 02/21/19 03:00 AST 18 U/L (15-37) 02/22/19 06:15 ALT 19 U/L (12-78) 02/22/19 06:15 Alkaline Phosphatase 36 U/L (46-116) L 02/22/19 06:15 Total Protein 7.3 g/dL (6.4-8.2) 02/22/19 06:15 Albumin 3.1 g/dL (3.4-5.0) L 02/22/19 06:15 Lipase 141 U/L (73-393) 02/21/19 03:00 Documented by User: Alise Zayas MD 02/22/19 12:48
--- NOTE | 2019-02-22 07:59 | PDOC.CMIN ---
- If Service Date Differs Date of service: 02/22/19 Time of Service: 07:59 Care Management Initial Assess REASON FOR HOSPITALIZATION:: Acute cholecystitis with chronic cholecystitis PAST MEDICAL HISTORY/PAST SURGICAL HISTORY:: Medical History: Acute cholecystitis with chronic cholecystitis (Acute). Acute cholecystitis due to biliary calculus (Acute). Acute gallstone pancreatitis (Acute). Surgical History: Biopsy of breast PREVIOUS FUNCTIONAL STATUS/SOCIAL/FAMILY SUPPORTS:: Liz lives in a ranch style home in [place], [place] with her and 2 children. 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 She is independent with ADLs, driving etc in the community. CURRENT FUNCTIONAL STATUS:: Liz was lying in her bed during CM visit. She reports still having a lot of pain. She is scheduled for a laparoscopic cholecystectomy later this morning. ADVANCE DIRECTIVES:: None on file and not interested in completing documents. Has patient been provided with information about the portal?: No Did the patient sign up for the portal?: No (not interested) CODE STATUS:: Full Code INSURANCE COVERAGE / FINANCIAL ISSUES:: BS CURRENT HOME/COMMUNITY SERVICES/EQUIPMENT:: None currently PRIMARY CARE PHYSICIAN:: Lilly Melendez POTENTIAL DISCHARGE NEEDS:: Follow up appointments with PCP and surgeon and plan of care as prescribed. PATIENT/FAMILY EDUCATION NEEDS:: Discharge plan, limitations, follow up plan of care, Ask Me Three ANTICIPATED BARRIERS TO DISCHARGE:: None identified TRANSPORTATION:: Via private automobile with family when ready. PLAN:: Liz was admitted with acute cholecystitis. She will have a laparoscopic cholecystectomy. She will be discharged home with no services. CM will provide support to patient, family, care givers and discharge plan. Readmission - Within the Past 30 Days Yes or No: Y - Date of First Admission Date of 1st Admission: 02/12/19 - Date of this Admission Date of Admission: 02/21/19 This admission was: Through ED - Office Visit Since 1st Admission Date of PCP Appointment: 02/15/19 Had an appointment Been Scheduled?: Yes Date of Scheduled Appointment: 02/15/19 Describe barriers for scheduling or getting an appointment: none - Speicalist Appointments Date you saw the Specialist: 02/14/19 - I. Interview patient and/or Family Have you had trouble purchasing/ or taking medication?: No Did you feel ready for discharge when you left the last time: Yes Were services received that you thought were set up on disch: No What services were received?: none needed Why weren't services received?: none needed - Assessment for Readmission Summary of readmission circumstances, based upon interviews: Liz was seen by surgery on 02/14/19 and was scheduled for a laparoscopic cholecystectomy on 03/29/19. She became acutely ill with increased pain and returned to the ED on 02/21/19 and was admitted for surgery.
--- NOTE | 2019-02-22 08:08 | INITIAL_ITS ---
- If Service Date Differs Date of service: 02/22/19 Time of Service: 07:59 Care Management Initial Assess REASON FOR HOSPITALIZATION:: Acute cholecystitis with chronic cholecystitis PAST MEDICAL HISTORY/PAST SURGICAL HISTORY:: Medical History: Acute cholecy stitis with chronic cholecystitis (Acute). Acute cholecystitis due to biliary calculus (Acute). Acute gallstone pancreatitis (Acute). Surgical History: Biopsy of breast PREVIOUS FUNCTIONAL STATUS/SOCIAL/FAMILY SUPPORTS:: Liz lives in a ranch style home in [place], [place] with her and 2 children. 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 She is independent with ADLs, driving etc in the community. CURRENT FUNCTIONAL STATUS:: Liz was lying in her bed during CM visit. She reports still having a lot of pain. She is scheduled for a laparoscopic cholecystectomy later this morning. ADVANCE DIRECTIVES:: None on file and not interested in completing documents. Has patient been provided with information about the portal?: No Did the patient sign up for the portal?: No (not interested) CODE STATUS:: Full Code INSURANCE COVERAGE / FINANCIAL ISSUES:: BS CURRENT HOME/COMMUNITY SERVICES/EQUIPMENT:: None currently PRIMARY CARE PHYSICIAN:: Lilly Melendez POTENTIAL DISCHARGE NEEDS:: Follow up appointments with PCP and surgeon and plan of care as prescribed. PATIENT/FAMILY EDUCATION NEEDS:: Discharge plan, limitations, follow up plan of care, Ask Me Three ANTICIPATED BARRIERS TO DISCHARGE:: None identified TRANSPORTATION:: Via private automobile with family when ready. PLAN:: Liz was admitted with acute cholecystitis. She will have a laparoscopic cholecystectomy. She will be discharged home with no services. CM will provide support to patient, family, care givers and discharge plan. Readmission - Within the Past 30 Days Yes or No: Y - Date of First Admission Date of 1st Admission: 02/12/19 - Date of this Admission Date of Admission: 02/21/19 This admission was: Through ED - Office Visit Since 1st Admission Date of PCP Appointment: 02/15/19 Had an appointment Been Scheduled?: Yes Date of Scheduled Appointment: 02/15/19 Describe barriers for scheduling or getting an appointment: none - Speicalist Appointments Date you saw the Specialist: 02/14/19 - I. Interview patient and/or Family Have you had trouble purchasing/ or taking medication?: No Did you feel ready for discharge when you left the last time: Yes Were services received that you thought were set up on disch: No What services were received?: none needed Why weren't services received?: none needed - Assessment for Readmission Summary of readmission circumstances, based upon interviews: Liz was seen by surgery on 02/14/19 and was scheduled for a laparoscopic cholecystectomy on 03/29/19. She became acutely ill with increased pain and returned to the ED on 02/21/19 and was admitted for surgery.
[2019-02-22] MEDS: PIPERACILLIN/TAZO 3.375 GM in Normal Saline 50 ML IVPB ×3 (08:10→19:58)
[2019-02-22] MEDS: Ketorolac 30 MG/ML VIAL IVP ×3 (08:14→19:56)
[2019-02-22] MEDS: Normal Saline Flush 10 ML SYR IVP ×3 (08:14→19:56)
[2019-02-22] MEDS: Lactated Ringers 1,000 ML 80 ML IV ×2 (11:00→13:55)
[2019-02-22] MEDS: Lidocaine 1% Multi-Dose 50 ML VIAL (11:14)
[2019-02-22] MEDS: Omnipaque 300 MG/ML 50 ML BTL (12:01)
--- NOTE | 2019-02-22 12:01 | DI.RAD_ITS ---
SYMPTOMS/DIAGNOSIS: CHOLECYSTITIS INTRAOPERATIVE CHOLANGIOGRAM: Fluoroscopy Time: 24 sec, 2.23 mGy Fluoroscopy was utilized by Dr. Zayas during the performance of a cholangiogram. Single images show no filling defects in the bile ducts. The intrahepatic bile ducts are of normal caliber. There is free flow of contrast into the duodenum. Please refer to the procedure report for complete details.
--- NOTE | 2019-02-22 12:15 | GB_PTH ---
PATIENT: Liz Lanier LOC: U#:[id number] AGE/SX: 43/F ROOM: RE02/21/[address]: Alise Zayas MD : [id number] BED: A DIS: 02/23/2019 SPEC #: [id number] RECD: 02/22/19 18:08 STATUS: ZOË REQ #: [id number] ALLY: 02/22/19 12:[address]: Alise Zayas DEPT: Surgical Specimen RECD BY: Carole Tinoco ENTERED: 02/22/19 18:09 SP TYPE: GB OTHR DR: Lilly Melendez Tissues: 1 - GALLBLADDER Procedures: GROSS AND MICRO LEVEL 3 Comments: [id number]
--- NOTE | 2019-02-22 12:53 | W.PM.OP ---
Date of service: 02/22/19 Time of Service: 12:54 Operative Note DATE OF PROCEDURE: 02/22/19 PRE-OP DIAGNOSIS: Acute Cholecystitis POST-OP DIAGNOSIS: other (Acute on Chronic Cholecystitis) PROCEDURE: Laparoscopic Cholecystectomy with intra-operative cholangiogram SURGEON: Alise Zayas MANAGER FIELD SALES: Leora Senior ANESTHESIA: GETA and local (1% Lidocaine with 0.5% Marcaine and expirel ) ESTIMATED BLOOD LOSS: 50 PATHOLOGY: other (Gallbladder and contents) COMPLICATIONS: None Patient was transported to: PACU Patient's condition: stable Indications: Mrs. Lanier is a pleasant 43-year-old female who was admitted recently to the hospital with gallstone pancreatitis recommendation was made to have a laparoscopic cholecystectomy at the patient decided that she did not want to have surgery at that time and wanted to postpone it until March. The patient was discharged. Patient return to the emergency department on Thursday morning with increased right upper quadrant and epigastric abdominal pain. Patient was admitted for laparoscopic cholecystectomy. Risks, benefits, complications were reviewed with the patient in the office. Complications include but are not limited to bleeding, infection, injury to stomach, small bowel and large bowel, injury to the pancreas, injury to the common bile duct necessitating drainage and referral to tertiary center for repair, bile leak, adverse reactions to the medications, complications of intubation including a sore throat or injury to the uvula, CO, stroke and even . Questions were entertained and answered to her satisfaction and she wished to proceed. No guarantees were given or implied. Findings: Thickened edematous gallbladder. There is edema and fluid between the gallbladder and the liver. Normal-sized cystic duct. Cholangiogram did not show a filling defect. Liver was smooth and there were no lesions. There were multiple large stones within the gallbladder. Procedure Description: After informed consent was obtained the patient was taken to the PACU from Med/Surg. The procedure and its complications were reviewed again. Patient did not have any questions. The patient was brought to the operating room, placed in a supine position and monitors were applied. SCDs were applied to her lower extremities and she was placed under general anesthesia and intubated without difficulty. Once intubated a Young catheter was placed in a standard sterile fashion. Her abdomen was then prepped and draped in a sterile fashion using ChloraPrep. At this point a timeout was done and the patient's name, date of , procedure type, allergies to medications, metal in her body, antibiotic and DVT prophylaxis were reviewed. Fire risk was assessed. At this point half percent Marcaine with epi was injected just above the umbilicus into the dermis and subcutaneous tissue. A 5 mm incision was made with an 11 blade. The skin next to the incision was grasped with penetrating towel clamps and while pulling up on the skin a 5 mm port was placed under direct visualization. The patient's fascia was quite strong and becuase she is so thin, I did not feel comfortable pushing quite hard to try to get through the fascia. The incision was opened slightly and the subcutaneous tissue was retracted and the fascia was grasped with kochers and a small 5 mm incision was made in the fascia. The abdomen was insuflated and then 3 more ports were placed. A 12 mm port was placed in the subxiphoid area and two 5 mm ports were placed in the right upper quadrant. The liver was inspected and was normal. The patient's bed was then turned to the left and her head was brought up. The gallbladder was distended and I was unable to grasp it. The Gallbladder was decompressed by removing the bile with a long needle. Care was taken not to injure the liver or bowel with the needle. The gallbladder was then grasped at the body and pushed towards the right shoulder, this allowed me to visualize the neck of the gallbladder. The neck was grasped and pulled towards the right flank and down allowing me to visualize the lymph node. Using a [place] dissector with cautery the lymph node was gently dissected away from the tissues and the fatty tissue was also dissected away. The cystic duct was identified it was normal in size. The duct was dissected 360 degrees using the [place] dissector in order for me to visualize its entrance into the gallbladder. Liver was noted behind it. There were no other structures right behind. Critical view was achieved. 1 clip was placed towards the Galbladder. A small incision was made in the duct with laparoscopic scissors. The cholangiogram catheter was placed into the duct and secured by inflating the balloon at the end of the catheter and with a grasper. NS was then injected without difficulty. Under fluoro Pmnipac was injected. The Common bile duct, intrahepatic ducts were identified. The bile was noted to flow into the duodenum. No filling defect was identified. The catheter was removed and 2 more clips were placed distal and the cystic duct was cut. The cystic artery was then identified and dissected 360 degrees. It was located just medial to the cystic duct. It was visualized going into the gallbladder. Once dissected 3 more clips were placed one proximal and 2 distal and the artery was cut. Using the hook dissector the gallbladder was then dissected away from the liver bed and placed into an Endo Catch bag. There was a plane of edema between the Gallbladder and the liver. The 12 mm incision had to be increased to about 5 cm in order to be able to be able to pull out the Gallbladder. The 12 mm port was placed back into the abdomen under direct visualization. A figure of eight suture was placed to close the fascia slightly in order to be able to re-insuflate the abdomen. The liver bed was inspected no bleeding was noted. The abdomen was then irrigated with a liter of normal saline until the effluent was clear. Once all the fluid was suctioned out, the rest of the local anesthetic mixture was injected above the liver to help with postoperative right shoulder pain. The 12 mm and the 2 right upper quadrant ports were removed under direct visualization and no bleeding was noted from the fascia. The abdomen was deflated completely and lastly the umbilical port was removed. The other half of the subxiphoid incision was closed with another figure of eight 0 vicryl. The subcutaneous tissue was re-approximated with 3-0 vicryl. The skin was cleaned and the incisions were closed with 4-0 Vicryl. The skin was dried and skin affix was applied over the closed incisions. Needle and sponge counts were correct at the end of the case. The Young catheter was removed. There was about 200 cc of urine. At this point the patient was woken up, extubated and taken back to recovery in stable condition. There were no immediate complications.
--- NOTE | 2019-02-22 14:39 | NUR.NOTE ---
Nursing Note: VSS. A&Ox3. Pt very drowsy. In bed @ this time. c/o feeling lightheaded. Fluids running. tolerating sips of H2O. denies pain. 4 trochar sites, glued, not draining. Will continue to monitor.
--- NOTE | 2019-02-22 14:58 | W.PM.PROGNOT ---
Date of Service Date of service: 02/22/19 Time of Service: 14:58 Assessment and Plan (1) History of laparoscopic cholecystectomy: Current visit: Yes Status: Acute A\\ POD #0 s/p Lap Charlee for acute and Chronic cholecystitis Normal cholangiogram P\\ Advance diet as tolerated Up and walking TID May shower Miralax for constipation DVT prophilaxis- SCD's GI prophilaxis- Protonix IV Disposition- Hopefully home tomorrow if she is able to eat and her pain is controlled and her leukocytosis is normal or at least decreased Subjective Interval history since last seen: Mrs Lanier is still very sleepy. She does wake up when I say her name. She is not complaining of pain at this time. Exam GI Inspection: incision (c/d/i) Objective Objective Clinical Data: Abnormal lab results 02/22/19 02/22/19 Range/Units 06:15 06:15 WBC 19.10 H D (4.4-10.8) k/cumm MPV 11.5 H (8.0-11.0) fL Absolute Neutrophils 16.58 H (1.2-6.7) k/cumm Absolute Lymphocytes 0.99 L (1.2-3.4) k/cumm Absolute Monocytes 1.41 H (0.11-0.7) k/cumm Sodium 134 L (136-145) mmol/L Potassium 3.2 L D (3.5-5.1) mmol/L BUN 3 L (7-18) mg/dL Creatinine 0.48 L (0.55-1.02) mg/dL Glucose 135 H (70-100) mg/dL Calcium 7.9 L (8.5-10.1) mg/dL Total Bilirubin 1.7 H (0.2-1.0) mg/dL Alkaline Phosphatase 36 L (46-116) U/L Albumin 3.1 L (3.4-5.0) g/dL Vital Signs Temperature 98.1 F 02/22/19 14:35 Temperature Source Skin 02/22/19 14:35 Pulse 75 02/22/19 14:35 Pulse Rhythm Regular 02/22/19 08:30 Respiratory Rate 14 02/22/19 14:35 Respiratory Effort Non-Labored 02/22/19 08:30 Respiratory Depth Normal 02/22/19 08:30 Respiratory Pattern Normal 02/22/19 08:30 Blood Pressure 116/80 02/22/19 14:35 Blood Pressure Position Sitting 02/21/19 02:39 Pulse Oximetry 96 02/22/19 14:46 Respiratory End-tidal CO2 18 02/22/19 14:10 Oxygen Delivery Method Nasal Cannula 02/22/19 14:46 Oxygen Flow Rate 2 02/22/19 14:46 Pain Level 0 02/22/19 14:10 Intake & Output 02/21/19 02/22/19 02/22/19 23:59 11:59 23:59 Intake Total 2647.5 / 4428.0 1862.5 / 2650.5 788 / 2650.5 Output Total 1600 / 2900 1800 / 1925 125 / 1925 Balance 1047.5 / 1528.0 62.5 / 725.5 663 / 725.5 Weight 108 lb 3.951 oz Intake: IV 2647.5 / 4428.0 1862.5 / 2650.5 788 / 2650.5 Output: Urine 1600 / 2700 1800 / 1925 125 / 1925 Other: Urine Color Light Kaylyn Yellow Yellow Urine Appearance Mucous Threads Clear Clear Urine Odor None Normal Emesis Description None Voiding Methods Toilet Toilet Laboratory Results WBC 19.10 k/cumm (4.4-10.8) H D 02/22/19 06:15 RBC 4.05 m/cumm (4.00-5.20) 02/22/19 06:15 Hgb 12.4 g/dL (12.0-15.5) 02/22/19 06:15 Hct 38.2 % (36.0-46.0) 02/22/19 06:15 MCV 94.3 fL (80-95) 02/22/19 06:15 MCH 30.6 pg (27.0-33.0) 02/22/19 06:15 MCHC 32.5 g/dL (32.0-36.0) 02/22/19 06:15 RDW 12.5 % (11.7-14.6) 02/22/19 06:15 Plt Count 200 x1000/uL (130-400) 02/22/19 06:15 MPV 11.5 fL (8.0-11.0) H 02/22/19 06:15 Immature Gran % 0.3 02/22/19 06:15 Neutrophils % 86.8 02/22/19 06:15 Lymphocytes % 5.2 02/22/19 06:15 Monocytes % 7.4 02/22/19 06:15 Eosinophils % 0.2 02/22/19 06:15 Basophils % 0.1 02/22/19 06:15 Absolute Neutrophils 16.58 k/cumm (1.2-6.7) H 02/22/19 06:15 Absolute Lymphocytes 0.99 k/cumm (1.2-3.4) L 02/22/19 06:15 Absolute Monocytes 1.41 k/cumm (0.11-0.7) H 02/22/19 06:15 Absolute Eosinophils 0.04 k/cumm (0.0-0.7) 02/22/19 06:15 Absolute Basophils 0.02 k/cumm (0.0-0.2) 02/22/19 06:15 PT 10.3 sec (9.3-11.0) 02/21/19 03:00 INR 1.0 (0.9-1.1) 02/21/19 03:00 APTT 20.7 sec (21.0-31.4) L 02/21/19 03:00 Sodium 134 mmol/L (136-145) L 02/22/19 06:15 Potassium 3.2 mmol/L (3.5-5.1) L D 02/22/19 06:15 Chloride 99 mmol/L (98-107) 02/22/19 06:15 Carbon Dioxide 24.1 mmol/L (21.0-32.0) 02/22/19 06:15 Anion Gap 10.9 mmol/L (3-11) 02/22/19 06:15 BUN 3 mg/dL (7-18) L 02/22/19 06:15 Creatinine 0.48 mg/dL (0.55-1.02) L 02/22/19 06:15 Estimated GFR/1.73 m2 >= 60.00 (mL/min/1.73m2) 02/22/19 06:15 Glucose 135 mg/dL (70-100) H 02/22/19 06:15 Calcium 7.9 mg/dL (8.5-10.1) L 02/22/19 06:15 Total Bilirubin 1.7 mg/dL (0.2-1.0) H 02/22/19 06:15 Conjugated Bilirubin 0.07 mg/dL (0.00-0.20) 02/21/19 03:00 AST 18 U/L (15-37) 02/22/19 06:15 ALT 19 U/L (12-78) 02/22/19 06:15 Alkaline Phosphatase 36 U/L (46-116) L 02/22/19 06:15 Total Protein 7.3 g/dL (6.4-8.2) 02/22/19 06:15 Albumin 3.1 g/dL (3.4-5.0) L 02/22/19 06:15 Lipase 141 U/L (73-393) 02/21/19 03:00
[2019-02-22] MEDS: Pantoprazole 40 MG VIAL IVP (16:40)
[2019-02-22] MEDS: Polyethylene Glycol 3350 17 GM PACKET PO (19:57)
--- NOTE | 2019-02-23 00:36 | NUR.NOTE ---
Nursing Note: Pt ambulates in the hallway with supervision without difficulty. Denied of post op pain, voiding well. Incisions is dry and intact, exposed to air. On scheduled Toradol and pain well managed.
[2019-02-23] MEDS: PIPERACILLIN/TAZO 3.375 GM in Normal Saline 50 ML IVPB ×3 (01:21→14:53)
[2019-02-23] MEDS: Normal Saline Flush 10 ML SYR IVP ×4 (01:21→15:51)
[2019-02-23] MEDS: Ketorolac 30 MG/ML VIAL IVP ×3 (01:33→14:53)
[2019-02-23] MEDS: Lactated Ringers 1,000 ML 80 ML IV (06:05)
--- NOTE | 2019-02-23 07:16 | W.PM.PROGNOT ---
Documented by User: CLAYTON Wright 02/23/19 07:25 Date of Service Date of service: 02/23/19 Time of Service: 07:16 Assessment and Plan (1) History of laparoscopic cholecystectomy: Current visit: Yes Status: Acute POD #1 S/P LAPROSCOPIC CHOLECYSTECTOMY Incision sites are covered with skin-a-fix. No erythema, swelling or warmth around these sites. Afebrile. Denies any nausea or vomiting. PAIN- Abdominal pain currently controlled. DIET- Started normal diet last night, which she very little, however this tolerated well. She expresses she is more hungry this morning. IV Fluids- Will discontinue after breakfast, once she starts taking in more PO. ACTIVITY- Encouraged ambulation TID AM Labs- Pending Disposition- Possible D/C home later today, pending AM labs and once she has increased her PO fluid intake and eats. Subjective Patient reports: voiding w/o difficulty; denies vomiting and fever Interval history since last seen: Feeling okay today. (+) Small BM last night and (+) Flatus. Soreness around RUQ and near incision sites. She reports eating some mashed potato last night without any pain,nausea or vomiting. She has been ambulating within her room independently. Exam Const General: cooperative, healthy appearing and comfortable Orientation: alert and oriented x3 Resp Effort & Inspection: normal respiratory effort, no audible wheezes and no cough Auscultation: clear to auscultation bilaterally Cardio Rate: regular rate Rhythm: regular rhythm Heart Sounds: S1 normal, S2 normal and no murmurs GI Inspection: normal to inspection and incision (Port sites with skin-a-fix in place) Palpation: soft, no guarding and nontender Auscultation: normal bowel sounds Objective Objective Clinical Data: Vital Signs Temperature 37.1 C 02/22/19 23:38 Temperature Source Tympanic 02/22/19 23:38 Pulse 87 02/22/19 23:38 Pulse Rhythm Regular 02/22/19 19:09 Respiratory Rate 18 02/22/19 23:38 Respiratory Effort Non-Labored 02/22/19 19:09 Respiratory Depth Normal 02/22/19 19:09 Respiratory Pattern Normal 02/22/19 19:09 Blood Pressure 109/74 02/22/19 23:38 Blood Pressure Position Sitting 02/21/19 02:39 Pulse Oximetry 98 02/22/19 23:38 Respiratory End-tidal CO2 18 02/22/19 14:10 Oxygen Delivery Method Room Air 02/22/19 23:38 Oxygen Flow Rate 0 02/22/19 23:38 Pain Level 0 02/23/19 01:33 Comment 02/22/19 15:09 Intake & Output 02/22/19 02/23/19 02/23/19 18:59 06:59 18:59 Intake Total 2027 / 8 1200 / 3228 Output Total 1325 / 1325 Balance 703 / 1903 1200 / 1903 Weight 50.1 kg Intake: IV 1788 / 2838 1050 / 2838 Oral 240 / 390 150 / 390 Output: Urine 1325 / 1325 Other: Urine Color Yellow Yellow Urine Appearance Clear Clear Urine Odor Normal Emesis Description None Voiding Methods Bedside Commode Toilet Laboratory Results WBC 19.10 k/cumm (4.4-10.8) H D 02/22/19 06:15 RBC 4.05 m/cumm (4.00-5.20) 02/22/19 06:15 Hgb 12.4 g/dL (12.0-15.5) 02/22/19 06:15 Hct 38.2 % (36.0-46.0) 02/22/19 06:15 MCV 94.3 fL (80-95) 02/22/19 06:15 MCH 30.6 pg (27.0-33.0) 02/22/19 06:15 MCHC 32.5 g/dL (32.0-36.0) 02/22/19 06:15 RDW 12.5 % (11.7-14.6) 02/22/19 06:15 Plt Count 200 x1000/uL (130-400) 02/22/19 06:15 MPV 11.5 fL (8.0-11.0) H 02/22/19 06:15 Immature Gran % 0.3 02/22/19 06:15 Neutrophils % 86.8 02/22/19 06:15 Lymphocytes % 5.2 02/22/19 06:15 Monocytes % 7.4 02/22/19 06:15 Eosinophils % 0.2 02/22/19 06:15 Basophils % 0.1 02/22/19 06:15 Absolute Neutrophils 16.58 k/cumm (1.2-6.7) H 02/22/19 06:15 Absolute Lymphocytes 0.99 k/cumm (1.2-3.4) L 02/22/19 06:15 Absolute Monocytes 1.41 k/cumm (0.11-0.7) H 02/22/19 06:15 Absolute Eosinophils 0.04 k/cumm (0.0-0.7) 02/22/19 06:15 Absolute Basophils 0.02 k/cumm (0.0-0.2) 02/22/19 06:15 PT 10.3 sec (9.3-11.0) 02/21/19 03:00 INR 1.0 (0.9-1.1) 02/21/19 03:00 APTT 20.7 sec (21.0-31.4) L 02/21/19 03:00 Sodium 134 mmol/L (136-145) L 02/22/19 06:15 Potassium 3.2 mmol/L (3.5-5.1) L D 02/22/19 06:15 Chloride 99 mmol/L (98-107) 02/22/19 06:15 Carbon Dioxide 24.1 mmol/L (21.0-32.0) 02/22/19 06:15 Anion Gap 10.9 mmol/L (3-11) 02/22/19 06:15 BUN 3 mg/dL (7-18) L 02/22/19 06:15 Creatinine 0.48 mg/dL (0.55-1.02) L 02/22/19 06:15 Estimated GFR/1.73 m2 >= 60.00 (mL/min/1.73m2) 02/22/19 06:15 Glucose 135 mg/dL (70-100) H 02/22/19 06:15 Calcium 7.9 mg/dL (8.5-10.1) L 02/22/19 06:15 Total Bilirubin 1.7 mg/dL (0.2-1.0) H 02/22/19 06:15 Conjugated Bilirubin 0.07 mg/dL (0.00-0.20) 02/21/19 03:00 AST 18 U/L (15-37) 02/22/19 06:15 ALT 19 U/L (12-78) 02/22/19 06:15 Alkaline Phosphatase 36 U/L (46-116) L 02/22/19 06:15 Total Protein 7.3 g/dL (6.4-8.2) 02/22/19 06:15 Albumin 3.1 g/dL (3.4-5.0) L 02/22/19 06:15 Lipase 141 U/L (73-393) 02/21/19 03:00 Documented by User: Alise Zayas MD 02/23/19 16:09
[2019-02-23 07:22] VITALS: BP 120/82; PULSE 73; RESP 18; TEMP 36.6; O2SAT 100
[2019-02-23 07:31] LABS: Abs Immature Grans 0.05 k/cumm (0.0-0.09); Absolute Basophil Count 0.01 k/cumm (0.0-0.2); Absolute Eosinophil Count 0.03 k/cumm (0.0-0.7); Absolute Lymphocyte Count 1.42 k/cumm (1.2-3.4); Absolute Monocyte Count 0.99 k/cumm (0.11-0.7); Absolute Neutrophil Count 12.27 k/cumm (1.2-6.7); Basophils % 0.1; Eosinophils % 0.2; HCT 31.5 % (36.0-46.0); Immature Grans % 0.3; Lymphocytes % 9.6; Mean Corp. HGB Concentration 31.7 g/dL (32.0-36.0); Mean Corpuscular Hemoglobin 30.4 pg (27.0-33.0); Mean Corpuscular Volume 95.7 fL (80-95); Monocytes % 6.7; Neutrophils % 83.1; Platelet Count 176 x1000/uL (130-400); RBC 3.29 m/cumm (4.00-5.20); RBC Distribution Width 12.5 % (11.7-14.6); White Blood Cell Count 14.77 k/cumm (4.4-10.8)
[2019-02-23 07:42] LABS: ALT 28 U/L (12-78); AST 39 U/L (15-37); Albumin 2.5 g/dL (3.4-5.0); Alkaline Phosphatase 43 U/L (46-116); Anion Gap 7.7 mmol/L (3-11); BUN 6 mg/dL (7-18); Bilirubin, Total 1.2 mg/dL (0.2-1.0); CO2 26.3 mmol/L (21.0-32.0); CREATININE 0.57 mg/dL (0.55-1.02); Calcium 8.1 mg/dL (8.5-10.1); Chloride 105 mmol/L (98-107); Glucose 98 mg/dL (70-100); Potassium 3.2 mmol/L (3.5-5.1); Sodium 139 mmol/L (136-145); Total Protein 6.5 g/dL (6.4-8.2)
--- NOTE | 2019-02-23 15:11 | PDOC.CMDIS ---
- If Service Date Differs Date of service: 02/23/19 Time of Service: 15:11 LACE Index Scoring Tool - Questions: Length of Stay (in days): 2 Acuity (Admit via E.D.?): Yes E.D. Visits: 2 - Answers: Total Score: 7 Risk of Readmission: Low Risk Care Management Discharge Reason for Hospitalization: Acute cholecystitis with chronic cholecystitis Discharge Plan: Liz will be discharged home with no services. She will follow up with her PCP and surgeon and prescribed plan of care. Her will provide transportation via private automobile. Patient/Family Education Needs: Discharge plan, limitations, follow up plan of care.
--- NOTE | 2019-02-23 15:26 | CHAPLAIN ---
Liz was resting in bed when I visited. She said she expects to be discharged today. I explained my role and offered support.
[2019-02-23] MEDS: Pantoprazole 40 MG VIAL IVP (15:50)
[2019-02-23 15:53] VITALS: BP 109/73; PULSE 76; RESP 18; TEMP 36.7; O2SAT 100
--- NOTE | 2019-02-23 16:09 | W.PM.DS.N ---
Date of service: 02/23/19 Time of Service: 16:09 DS: Diagnosis Discharge Diagnosis (1) Acute and chronic cholecystitis: Status: Acute (2) History of laparoscopic cholecystectomy: Status: Acute Discharge Plan Disposition Patient Disposition: HOME Condition: Stable Discharge Details Reason For Visit: CHOLECYSTITIS Admit Date/Time: 02/21/19 06:15 Admit Provider: Alise Zayas Attending Provider: Alise Zayas Primary Care Provider: Lilly Melendez Hospital Course Hospital Course: Mrs. Lanier is a pleasant 43 year old female who was admitted on Thursday for acute on chronic cholecystitis. She had been hospitalized a few weeks earlier for mild Gallstone Pancreatitis. Cholecystectomy was recommended at that admission but the patient wanted to wait until March to have surgery. She returned to the ER thursday late evening with increasing RUQ and epigastric pain. Patient was admitted and started on IV fluids. Surgery was delayed until Thursday due confusion about a abnormal EKG found in her chart. There was one normal and one abnormal EKG. Upon further investigation it was found that the abnormal EKG was not hers. Patient went to surgery on Thursday and underwent a very difficult laparoscopic Cholecystectomy. There was a lot of inflammation and a large stone stuck in the neck of the Gallbladder. Patient was started on Clear liquids the night of surgery and advanced to a regular low fat diet on Thursday. She tolerated breakfast and lunch without increased pain or N/V. Patient was noted to have leukocytosis on Thursday morning and was treated with Zosyn for 24 hours. On discharge the WBC count had decreased from 19 to 12. She had been afebrile for 24 hours. She has only taken Toradol for pain. She has not had a BM since admission. Miralax was started but patient refused. Discussed constipation with her and encouraged high fiber diet and Miralax of Milk of magnesia as needed for constipation. Patient is discharged home. Home Meds and New Rx's Prescriptions: New ibuprofen 600 mg tablet 600 mg PO QID PRN (Reason: fever or pain) Qty: 30 RF: 0 acetaminophen [Tylenol] 325 mg tablet 650 mg PO Q6H PRN (Reason: fever or p) Qty: 30 RF: 0 amoxicillin-pot clavulanate 875-125 mg tablet 1 tab PO BID Qty: 10 RF: 0 Continued Women's One Daily 1 EACH tablet 1 ea PO PRN RF: 0 Discharge Instructions Instructions: Laparoscopic Cholecystectomy (DC) Additional Instructions: Activity at Home after surgery: 1. Make sure you walk outside at least 4 times per day 2. You should be able to climb a flight of stairs 3. No driving while in pain or taking pain medications 4. No strenuous activity or heavy lifting for 2 weeks Diet, Nutrition, & wound healin. Avoid alcohol until after you are recovered from your surgery 2. Make sure to eat plenty of lean protein (meat, fish, eggs, cottage cheese, beans) 3. Eat a variety of fruits and vegetables. Eat plenty of high fiber foods to avoid constipation. 4. Drink plenty of liquids to stay hydrated and avoid constipation Pain Medications: 1. Alternate Tylenol 650 mg and Ibuprofen 600 mg every 3 hours 2. Take Augmentin (an antibiotic), 1 tab 2 x a day for 5 days For Constipation: 1. Take Milk of Magnesia or MiraLax as needed for constipation Other: 1. You may shower daily. Do not scrub the incisions 2. Do not soak the incisions for 1 week 3. You may alternate ice and heat as needed for pain and swelling Wound Care: 1. Keep the incisions clean and dry Please call our office if you develop: 1. Fevers >101.5 2. Nausea or Vomiting 3. Worsening pain 4. Redness and thick discharge from the wounds If after hours please call the Hospital at and ask to speak to the on-call surgeon Referrals: Alise Zayas MD [ [facility] STAFF PHYSICIAN] - 03/08/19 1:15 pm Activity:: No lifting >20 lb Equipment/Supplies:: No Equipment Needed Diet:: Low fat Discharge Orders Discharge Orders: Discharge Order (Routine); Ordered 02/23/19 Ordered By: Alise Zayas Exam Const General: cooperative, comfortable and no acute distress Resp Effort & Inspection: normal respiratory effort Auscultation: clear to auscultation bilaterally Cardio Rate: regular rate Rhythm: regular rhythm Heart Sounds: no gallops, no murmurs and no rubs GI Inspection: incision (c/d/i) Palpation: soft, no hepatosplenomegaly and tender (appropriately tender around the incisions) Auscultation: normal bowel sounds Abdomen image: 1. 2. 3. 4. DS: Data Vitals/I&O Vitals and I&O: Vital Signs Temperature 98.1 F 02/23/19 15:53 Temperature Source Tympanic 02/23/19 15:53 Pulse 76 02/23/19 15:53 Pulse Rhythm Regular 02/23/19 09:44 Respiratory Rate 18 02/23/19 15:53 Respiratory Effort Non-Labored 02/23/19 09:44 Respiratory Depth Normal 02/23/19 09:44 Respiratory Pattern Normal 02/23/19 09:44 Blood Pressure 109/73 02/23/19 15:53 Blood Pressure Position Sitting 02/21/19 02:39 Pulse Oximetry 100 02/23/19 15:53 Respiratory End-tidal CO2 18 02/22/19 14:10 Oxygen Delivery Method Room Air 02/23/19 15:53 Oxygen Flow Rate 0 02/23/19 15:53 Pain Level 4 02/23/19 07:47 Comment 02/22/19 15:09 Intake & Output 02/22/19 02/23/19 02/23/19 23:59 11:59 23:59 Intake Total 1128 / 3040.5 1850 / 2090 240 / 2090 Output Total 725 / 2525 Balance 403 / 515.5 1850 / 2090 240 / 2090 Weight 110 lb 7.225 oz Intake: IV 888 / 2800.5 1100 / 1100 Oral 240 / 240 750 / 990 240 / 990 Output: Urine 725 / 2525 Other: Urine Color Yellow Urine Appearance Clear Clear Comment Pt reports voiding clear yellow. Not seen by nursing. Emesis Description None Voiding Methods Toilet Labs on day of discharge: Labs from last 24 hours 02/23/19 02/23/19 06:20 06:20 WBC 14.77 H RBC 3.29 L Hgb 10.0 L D Hct 31.5 L MCV 95.7 H MCH 30.4 MCHC 31.7 L RDW 12.5 Plt Count 176 MPV 12.0 H Immature Gran % 0.3 Neutrophils % 83.1 Lymphocytes % 9.6 Monocytes % 6.7 Eosinophils % 0.2 Basophils % 0.1 Absolute Neutrophils 12.27 H Absolute Lymphocytes 1.42 Absolute Monocytes 0.99 H Absolute Eosinophils 0.03 Absolute Basophils 0.01 Sodium 139 Potassium 3.2 L Chloride 105 Carbon Dioxide 26.3 Anion Gap 7.7 BUN 6 L Creatinine 0.57 Estimated GFR/1.73 m2 >= 60.00 Glucose 98 Calcium 8.1 L Total Bilirubin 1.2 H AST 39 H ALT 28 Alkaline Phosphatase 43 L Total Protein 6.5 Albumin 2.5 L PFSH Medical History Acute cholecystitis with chronic cholecystitis (Acute) Acute cholecystitis due to biliary calculus (Acute) Acute gallstone pancreatitis (Acute) Surgical History History of laparoscopic cholecystectomy (Acute ~02/22/19) Biopsy of breast Social History Smoking/Tobacco Use Status: Never Alcohol Intake: current Alcohol Intake frequency: other Drug use: Never Substance use type: does not use Seatbelt use: always Do you feel safe at home: Yes Do you feel safe in your relationship?: Yes Female Reproductive History Menstrual control method: condoms History History 3 Para Hx # Term Pregnancies 2 Multiple births Hx # Pregnancies Ectopic pregnancies AB induced Hx Number of Living Children AB spontaneous
== END 2019-02-23 17:38 | disposition home or self-care (01) | DRG 419 ==
LOC: ER 06:21 → MS 13:46
PROVIDERS: Admitting Provider Surgery; Emergency Provider Emergency Medicine; PCP Nurse Practitioner; Visit Provider Surgery
PROC: 0FT44ZZ Resection of Gallbladder, Percutaneous Endoscopic Approach (ICD-10-PCS; CPT 47562; principal; 2019-02-22 12:00)
DX: K80.12 Calculus of gallbladder with acute and chronic cholecystitis without obstruction (principal)
CPT/HCPCS: 47563; 36415; 80053; 80076; 83690; 96361; 96374; 96375; 99222; 99232; 99285; NC; 74177; 74300; 85025; 85610; 85730; 88304; 93005; 93010; 99284; J0131; J0780; J1100; J1885; J2250; J2270; J2405; J2543; J3010; J3490; Q9967

== ENCOUNTER 2022-06-19 12:34 | Outpatient (REF) | payer MEDICAID, SELFPAY ==
[2022-06-19 16:25] LABS: HGB 13.1 g/dL (11.2-15.7); MCH 30.4 pg (27.0-33.0); MCHC 32.8 % (32.0-36.0); MCV 93 fL (80-95); Platelet Count 169 10^3/uL (130-400); RBC 4.31 10^6/uL (3.93-5.22); RDW 11.7 % (11.7-14.6); WBC 7.72 10^3/uL (4.4-10.8)
[2022-06-19 18:12] LABS: Cholesterol 184 mg/dL (<200)
[2022-06-19 18:13] LABS: ALT 13 U/L (14-59); AST 16 U/L (15-37); Albumin 3.9 g/dL (3.4-5.0); Alkaline Phosphatase 39 U/L (46-116); Anion Gap 9.7 mmol/L (3-11); BUN 17 mg/dL (7-18); CO2 28.3 mmol/L (21.0-32.0); CREATININE 0.7 mg/dL (0.55-1.02); Chloride 101 mmol/L (98-107); Estimated GFR 106.62 (mL/min/1.73m2); Glucose 96 mg/dL (74-106); Potassium 3.8 mmol/L (3.5-5.1); Sodium 139 mmol/L (136-145); Total Protein 8.2 g/dL (6.4-8.2)
[2022-06-19 18:35] LABS: Vitamin D 25 Total 32.9 ng/mL (30-100)
== END 2022-06-19 12:35 | disposition home or self-care (01) ==
LOC: NCHCN 12:34
PROVIDERS: PCP Nurse Practitioner; Visit Provider Nurse Practitioner Family
DX: Z13.220 Encounter for screening for lipoid disorders (principal); Z86.2 Personal history of diseases of the blood and blood-forming organs and certain disorders involving the immune mechanism; E55.9 Vitamin D deficiency, unspecified
CPT/HCPCS: 80053; 82306; 85027; 82465

== ENCOUNTER 2023-06-24 10:53 | Outpatient (REF) | payer MEDICAID, SELFPAY ==
--- NOTE | 2023-06-24 10:45 | PAPFT_PTH ---
PATIENT: Liz Lanier LOC: [facility] U#:[id number] AGE/SX: 47/F ROOM: RE06/24/[address]: Nkechi Jara NP : 1975 BED: DIS: 06/24/2023 SPEC #: [id number] RECD: 06/24/23 17:34 STATUS: ZOË JUAREZ #: [id number] ALLY: 06/24/23 10:[address]: Nkechi Jara NP DEPT: [facility] Cytology RECD BY: Carole Tinoco ENTERED: 06/24/23 17:34 SP TYPE: PAPFT OTHR DR: Lilly Melendez Tissues: 1 - CX/ENDOCX FOR PAP SMEARS Procedures: PAP THIN PREP/UVM Screening HPV DNA PROBE Comments: [id number]
== END 2023-06-24 10:54 | disposition home or self-care (01) ==
LOC: LBN 10:53
PROVIDERS: PCP Nurse Practitioner; Visit Provider Nurse Practitioner Women's Health
DX: Z12.4 Encounter for screening for malignant neoplasm of cervix (principal); Z11.51 Encounter for screening for human papillomavirus (HPV)
CPT/HCPCS: 88142; 87624

== ENCOUNTER → 2023-07-02 02:01 | Outpatient (CLI) | payer MEDICAID, SELFPAY ==
--- NOTE | 2023-07-02 15:15 | DI.MAMMO_ITS ---
Exam(s) MAMMO SCREENING EXAM: MAMMO SCREENING CLINICAL HISTORY: screening TECHNIQUE: Bilateral full field digital CC and MLO mammographic images were obtained with 3D tomosyn thesis and utilizing computer aided detection (CAD). COMPARISON: 2014 and 2017 FINDINGS: Masses/Architectural Distortion: None seen. Microcalcifications: No suspicious pleomorphic-type are seen. Skin Thickening/Nipple Retraction: None. IMPRESSION: 1. No significant interval change with no specific features of malignancy noted. 2. Unless there is more urgent need, screening mammography is recommended, as per [employer] guidelines. BI-RADS Category 1 - Negative Breast Density - Category C - Heterogeneously dense Breast density category C or D implies that the patient has dense breast tissue. Dense breast tissue is very common and is not abnormal but dense breast tissue can make it harder to find cancer on a ma mmogram. Also, dense breast tissue may increase their breast cancer risk. This information about the result of the mammogram report was provided to the patient to raise their awareness. Use this report when you speak with the patient about their risks for breast cancer, which includes their family hist ory. At that time, you may recommend for more screening tests (Ultrasound or MRI) as they might be us eful based on their risk. A negative radiographic report should not delay biopsy if a dominant or clinically suspicious mass is present. Up to ten percent of cancers are not identified on mammography. A negative report may reinforce clinical impression. Adenosis and dense breasts may obscure an underlying neoplasm. False positive reports average 6 to 10%. Patient will receive a letter notifying them of these results.
== END ==
PROVIDERS: PCP Nurse Practitioner; Visit Provider Nurse Practitioner Women's Health
DX: Z12.31 Encounter for screening mammogram for malignant neoplasm of breast (principal)
CPT/HCPCS: 77063; 77067

== ENCOUNTER 2023-10-08 14:16 | Outpatient (REF) | payer MEDICAID, SELFPAY ==
[2023-10-08 18:28] LABS: Abs Immature Grans 0.02 10^3/uL (0.0-0.06); Absolute Basophil Count 0.06 10^3/uL (0.0-0.2); Absolute Eosinophil Count 0.17 10^3/uL (0.0-0.7); Absolute Monocyte Count 0.32 10^3/uL (0.1-0.8); Absolute Neutrophil Count 4.24 10^3/uL (1.2-6.7); Basophils % 0.9; Eosinophils % 2.5; HCT 41.2 % (36.0-46.0); HGB 13.3 g/dL (11.2-15.7); Immature Grans % 0.3; Lymphocytes % 29.4; MCH 29.9 pg (27.0-33.0); MCHC 32.3 % (32.0-36.0); MCV 93 fL (80-95); Monocytes % 4.7; Neutrophils % 62.2; RBC 4.45 10^6/uL (3.93-5.22); RDW 11.4 % (11.7-14.6); RDW-SD 38.5 fL; WBC 6.81 10^3/uL (4.4-10.8)
[2023-10-08 19:05] LABS: ALT 26 U/L (14-59); AST 32 U/L (15-37); Albumin 3.7 g/dL (3.4-5.0); Alkaline Phosphatase 63 U/L (46-116); Anion Gap 6.5 mmol/L (3-11); BUN 7 mg/dL (7-18); Bilirubin, Total 0.9 mg/dL (0.2-1.0); CO2 29.5 mmol/L (21.0-32.0); CREATININE 0.7 mg/dL (0.55-1.02); Calcium 8.9 mg/dL (8.5-10.1); Calculated LDL 121 mg/dL (<100); Chloride 103 mmol/L (98-107); Cholesterol 204 mg/dL (<200); Estimated GFR 105.95 (mL/min/1.73m2); Glucose 97 mg/dL (74-106); HDL Cholesterol 57 mg/dL (40-60); Sodium 139 mmol/L (136-145); TSH 1.11 uIU/mL (0.36-3.74); Total Protein 8.2 g/dL (6.4-8.2); Triglyceride 133 mg/dL (<150)
[2023-10-08 19:09] LABS: Hemoglobin A1C 4.8 % (<5.7)
[2023-10-08 19:16] LABS: Vitamin D 25 Total 30.7 ng/mL (30-100)
[2023-10-08 19:23] LABS: FREE T4 1.04 ng/dL (0.76-1.46)
== END 2023-10-08 14:17 | disposition home or self-care (01) ==
LOC: NCHCN 14:16
PROVIDERS: PCP Nurse Practitioner; Visit Provider Nurse Practitioner Family
DX: E55.9 Vitamin D deficiency, unspecified (principal); G47.9 Sleep disorder, unspecified; R79.89 Other specified abnormal findings of blood chemistry; Z13.6 Encounter for screening for cardiovascular disorders; Z13.1 Encounter for screening for diabetes mellitus
CPT/HCPCS: 80053; 80061; 82306; 83036; 84439; 84443; 85025

== ENCOUNTER 2024-07-18 02:31 | Outpatient (CLI) | payer MEDICAID, SELFPAY ==
--- NOTE | 2024-07-18 12:35 | DI.MAMMO_ITS ---
Exam(s) MAMMO SCREENING EXAM: MAMMO SCREENING CLINICAL HISTORY: screening TECHNIQUE: Mammograms were interpreted according to the usual protocol including computer analysis w [email or web address] CAD system, tomosynthesis and C-view imaging. COMPARISON: 2014 through 2022 FINDINGS: The breasts are composed of heterogeneously dense fibroglandular densities, Breast Density category C . No suspicious masses or suspicious microcalcifications are seen. No skin thickening or abnormal axillary lymph nodes are seen. There has been no significant change from prior exams. IMPRESSION: BI-RADS Category 1, Negative mammogram. Yearly screening mammography is recommended. Breast Density Category C, heterogeneously Dense. The mammogram demonstrates the patient's breast tissue is dense. Dense breast tissue is very common a nd is not abnormal but dense breast tissue can make it harder to find cancer on a mammogram. Also, de nse breast tissue may increase breast cancer risk. This information about the result of the mammogram report was provided to the patient to raise their awareness. Use this report when you speak with the patient about their risks for breast cancer, which includes their family history. At that time, you may recommend additional screening tests (Ultrasound or MRI) as they might be useful based on their r isk. A negative radiographic report should not delay biopsy if a dominant or clinically suspicious mass is present. Up to ten percent of cancers are not identified on mammography. A negative report may reinforce clinical impression. Adenosis and dense breasts may obscure an underlying neoplasm. False positive reports average 6 to 10%.
== END 2024-07-18 02:51 ==
LOC: DI 02:31
PROVIDERS: Visit Provider Nurse Practitioner Women's Health
DX: Z12.31 Encounter for screening mammogram for malignant neoplasm of breast (principal)
CPT/HCPCS: 77063; 77067

== ENCOUNTER 2024-11-07 13:03 | Outpatient (REF) | payer MEDICAID, SELFPAY ==
[2024-11-07 18:41] LABS: Abs Immature Grans 0.01 10^3/uL (0.0-0.06); Absolute Basophil Count 0.05 10^3/uL (0.0-0.2); Absolute Eosinophil Count 0.15 10^3/uL (0.0-0.7); Absolute Lymphocyte Count 1.77 10^3/uL (1.2-3.4); Absolute Monocyte Count 0.28 10^3/uL (0.1-0.8); Absolute Neutrophil Count 3.08 10^3/uL (1.2-6.7); Basophils % 0.9 %; Eosinophils % 2.8 %; HGB 12.9 g/dL (11.2-15.7); Immature Grans % 0.2 %; Lymphocytes % 33.1 %; MCH 30.1 pg (27.0-33.0); MCHC 32.3 % (32.0-36.0); MCV 93 fL (80-95); MPV 11.9 fL (8.0-11.0); Monocytes % 5.2 %; Neutrophils % 57.8 %; Platelet Count 201 10^3/uL (130-400); RBC 4.29 10^6/uL (3.93-5.22); RDW 11.8 % (11.7-14.6); WBC 5.34 10^3/uL (4.4-10.8)
[2024-11-07 19:04] LABS: ALT 12 U/L (14-59); AST 19 U/L (15-37); Albumin 3.9 g/dL (3.4-5.0); Alkaline Phosphatase 48 U/L (46-116); Anion Gap 7.8 mmol/L (3-11); BUN 15 mg/dL (7-18); Bilirubin, Total 1.13 mg/dL (0.2-1.0); CO2 29.2 mmol/L (21.0-32.0); CREATININE 0.7 mg/dL (0.55-1.02); Calcium 9.9 mg/dL (8.5-10.1); Calculated LDL 115 mg/dL (<100); Chloride 105 mmol/L (98-107); Cholesterol 202 mg/dL (<200); Estimated GFR 104.65 (mL/min/1.73m2); Glucose 95 mg/dL (74-106); HDL Cholesterol 69 mg/dL (40-60); Potassium 3.9 mmol/L (3.5-5.1); Sodium 142 mmol/L (136-145); TSH (W/Ref FT4) 1.07 uIU/mL (0.36-3.74); Total Protein 8.1 g/dL (6.4-8.2); Triglyceride 93 mg/dL (<150)
== END 2024-11-07 13:04 | disposition home or self-care (01) ==
LOC: NCHCN 13:03
PROVIDERS: Visit Provider Nurse Practitioner Family
DX: Z00.00 Encounter for general adult medical examination without abnormal findings (principal)
CPT/HCPCS: 80053; 80061; 84443; 85025

== ENCOUNTER 2025-07-25 01:29 | Outpatient (CLI) | payer MEDICAID, SELFPAY ==
--- NOTE | 2025-07-25 09:25 | DI.MAMMO_ITS ---
Exam(s) MAMMO SCREENING EXAM: MAMMO SCREENING CLINICAL HISTORY: screening TECHNIQUE: Bilateral full field digital CC and MLO mammographic images were obtained with 3D tomosynthesis and utilizing computer aided detection (CAD). COMPARISON: Comparison is made with prior examinations. FINDINGS: Masses/Architectural Distortion: There is a question of a 6 mm nodule in the outer central left breast on the craniocaudad view 4 cm from the nipple. Microcalcifications: No suspicious pleomorphic-type are seen. Skin Thickening/Nipple Retraction: None. IMPRESSION: 1. Question of a new nodule in the outer left breast on the craniocaudad view. 2. This area should be further evaluated with a spot compression view. Ultrasound may be indicated at that time. BI-RADS Category 0 - Incomplete: Need additional imaging evaluation Breast Density - Category C - The breast are heterogeneously dense, which may obscure small masses. Breast density Category C or D implies that the patient has dense breast tissue. Dense breast tissue can make it harder to find cancer on a mammogram. Dense breast tissue is also associated with an increased risk of breast cancer. This information about the result of the mammogram report was provided to the patient to raise their awareness. Use this report when you speak with the patient about their risks for breast cancer, which includes their family history. At that time, you may recommend additional screening tests (Ultrasound or MRI) as these tests may add significant information. A negative radiographic report should not delay biopsy if a dominant or clinically suspicious mass is present. Up to ten percent of cancers are not identified on mammography. A negative report may reinforce clinical impression. Adenosis and dense breasts may obscure an underlying neoplasm. False positive reports average 6 to 10%. Patient will receive a letter notifying them of these results.
== END 2025-07-25 01:49 ==
LOC: DI 01:29
PROVIDERS: Visit Provider Nurse Practitioner Women's Health
DX: Z12.31 Encounter for screening mammogram for malignant neoplasm of breast (principal); N63.21 Unspecified lump in the left breast, upper outer quadrant
CPT/HCPCS: 77063; 77067

== ENCOUNTER 2025-08-01 02:09 | Outpatient (CLI) | payer MEDICAID, SELFPAY ==
--- NOTE | 2025-08-01 | DI.US_ITS ---
Exam(s) MG MAMMO SCREEN CALL BACK UNI US BREAST LT LIMITED EXAM: MG MAMMO SCREEN CALL BACK UNI CLINICAL HISTORY: F/U ABNL MAMMO, R92.8, ? NEW LT BREAST NODULE. TECHNIQUE: Craniocaudal spot compression digital Mammography views of the leftbreast with Tomosynthesis and left breast ultrasound. COMPARISON: MG Screening Bilat Mammo from 02/02/2015 MG MG mammo screening from 07/29/2018 MG MG MAMMO SCREENING from 07/02/2023 MG MG MAMMO SCREENING from 07/18/2024 MG MG MAMMO SCREENING from 07/25/2025 US US BREAST LT LIMITED from 08/01/2025 FINDINGS: Mammography/Tomosynthesis: Masses: None seen. Architectural Distortion: None seen. Microcalcifictions: No suspicious pleomorphic-type are seen. Skin Thickening/Nipple Retraction: None. Left breast US: Echotexture: Normal appearance of the glandular tissue. Shadowing: No suspicious foci. Cyst: 7 x 3 x 6 millimeter circumscribed hypoechoic nodule in the 2 o'clock position 3 cm from the nipple. Findings may represent a proteinaceous cyst versus small fibroadenoma. Ductal dilation: None. IMPRESSION: 1. No evidence of malignancy is noted. 2. Unless there is more urgent need, follow-up screening mammography is recommended, as per [employer] guidelines. 3. The findings were discussed with the patient on the date of the examination. BI-RADS Category 2 - Benign Findings Breast Density - Category C - The breast are heterogeneously dense, which may obscure small masses. Breast density Category C or D implies that the patient has dense breast tissue. Dense breast tissue can make it harder to find cancer on a mammogram. Dense breast tissue is also associated with an increased risk of breast cancer. This information about the result of the mammogram report was provided to the patient to raise their awareness. Use this report when you speak with the patient about their risks for breast cancer, which includes their family history. At that time, you may recommend additional screening tests (Ultrasound or MRI) as these tests may add significant information. A negative radiographic report should not delay biopsy if a dominant or clinically suspicious mass is present. Up to ten percent of cancers are not identified on mammography. A negative report may reinforce clinical impression. Adenosis and dense breasts may obscure an underlying neoplasm. False positive reports average 6 to 10%. Patient will receive a letter notifying them of these results.
== END 2025-08-01 02:29 ==
LOC: DI 02:09
PROVIDERS: Visit Provider Nurse Practitioner Women's Health
DX: Z12.31 Encounter for screening mammogram for malignant neoplasm of breast (principal); N63.21 Unspecified lump in the left breast, upper outer quadrant
CPT/HCPCS: 76642; 77063; 77067